=== PATIENT | female | born 1935 | race Caucasian/White ===

== ENCOUNTER → 2017-02-22 | Outpatient (CLI) | payer MEDICARE, MEDICAID ==
--- NOTE | 2017-02-22 15:03 | RADIOLOGY REPORT (SQ) ---
EXAM DESCRIPTION: SACRUM AND COCCYX COMPLETED DATE/TIME: 02/22/2017 2:38 pm REASON FOR STUDY: PELVIC AND PERINEAL PAIN R10.2 PELVIC AND PERINEAL PAIN COMPARISON: None. NUMBER OF VIEWS: Three views. TECHNIQUE: AP, lateral, and tilt views of the sacrum and coccyx. LIMITATIONS: None. FINDINGS: MINERALIZATION: Osteopenia. BONES: No acute fracture or dislocation. No worrisome bone lesions. SOFT TISSUES: No soft tissue swelling. No foreign body. OTHER: No other significant finding. IMPRESSION: Osteopenia with no acute abnormality of the sacrum and coccyx. TECHNICAL DOCUMENTATION: JOB ID: [id number] [employer]- All Rights Reserved
--- NOTE | 2017-02-22 15:05 | RADIOLOGY REPORT (SQ) ---
EXAM DESCRIPTION: LUMBAR SPINE COMPLETE COMPLETED DATE/TIME: 02/22/2017 2:38 pm REASON FOR STUDY: PELVIC AND PERINEAL PAIN R10.2 PELVIC AND PERINEAL PAIN COMPARISON: None. NUMBER OF VIEWS: Five views including obliques. TECHNIQUE: AP, lateral, oblique, and sacral radiographic images acquired of the lumbar spine. LIMITATIONS: None. FINDINGS: MINERALIZATION: Osteopenia. SEGMENTATION: Normal. No transitional anatomy. ALIGNMENT: Normal. VERTEBRAE: Maintained height. No fracture or worrisome bone lesion. DISCS: There is mild disc space narrowing from L3-S1 POSTERIOR ELEMENTS: Pedicles and facets are intact. No pars defect or posterior arch defects. HARDWARE: None in the spine. PARASPINAL SOFT TISSUES: Normal. PELVIS: Intact as visualized. No fractures or worrisome bone lesions. SI joints intact. OTHER: No other significant finding. IMPRESSION: Osteopenia with mild degenerative disc changes TECHNICAL DOCUMENTATION: JOB ID: [id number] [employer]- All Rights Reserved
--- NOTE | 2017-02-22 15:06 | RADIOLOGY REPORT (SQ) ---
EXAM DESCRIPTION: SACROILIAC JOINTS COMPLETED DATE/TIME: 02/22/2017 2:38 pm REASON FOR STUDY: PELVIC AND PERINEAL PAIN R10.2 PELVIC AND PERINEAL PAIN COMPARISON: None. NUMBER OF VIEWS: Three views. TECHNIQUE: AP and oblique views of the sacroiliac joints. LIMITATIONS: None. FINDINGS: MINERALIZATION: Osteopenia. BONES: No acute fracture or dislocation. No worrisome bone lesions. No significant osteophytes. JOINTS: The sacroiliac joints are patent. No unusual widening, sclerosis, or fusion. SOFT TISSUES: No soft tissue swelling. No radio-opaque foreign body. OTHER: No other significant finding. IMPRESSION: Osteopenia. Normal SI joints. TECHNICAL DOCUMENTATION: JOB ID: [id number] [employer]- All Rights Reserved
== END ==
LOC: OD 14:08
PROVIDERS: ATTEND Internal Medicine
DX: R10.2 Pelvic and perineal pain (principal)
CPT/HCPCS: 72110; 72200; 72220

== ENCOUNTER 2017-03-18 21:03 | Emergency (ER) | payer MEDICARE, MEDICAID ==
--- NOTE | 2017-03-18 22:27 | RADIOLOGY REPORT (SQ) ---
EXAM DESCRIPTION: HIP RIGHT AP/LATERAL COMPLETED DATE/TIME: 03/18/2017 9:59 pm REASON FOR STUDY: fall this am , right hip pain COMPARISON: None. NUMBER OF VIEWS: Two views. TECHNIQUE: AP pelvis and additional frog-leg view of the right hip. LIMITATIONS: None. FINDINGS: MINERALIZATION: Normal. RIGHT HIP: No fracture or dislocation. No worrisome bone lesions. LEFT HIP: No fracture or dislocation. No worrisome bone lesions. PUBIS AND ISCHIUM: No fracture. PELVIS: No fracture. SACRUM: No fracture or dislocation. No worrisome bone lesions. LOWER LUMBAR SPINE: No fracture or dislocation. No worrisome bone lesions. No significant disc disea se. SOFT TISSUES: No findings. OTHER: No other significant finding. IMPRESSION: NO RADIOGRAPHIC EVIDENCE OF ACUTE INJURY. TECHNICAL DOCUMENTATION: JOB ID: [id number] [employer]- All Rights Reserved
[2017-03-18] MEDS ORDERED: HYDROCODONE/ACETAMINOPHEN 5-325 MG TABLET PO ONE (23:04)
[2017-03-18] MEDS ORDERED: HYDROCODONE/ACETAMINOPHEN 5-325 MG 6 TAB/DSPK PO PRN (23:05)
--- NOTE | 2017-03-18 23:05 | ER Document Report ---
ED Hip Pain/Injury - General Chief Complaint: Hip Pain Stated Complaint: HIP PAIN Time Seen by Provider: 03/18/17 21:30 Mode of Arrival: Medic Information source: Patient, Relative - daughter Notes: 81 yo female with hx fibromyalgia stumbled and slipped on rug this am in the bathroom and fell injurying her right posterior hip at 0900. Daughter that she lives with gave her Tylenol with codeine#4 4 times today and consistently had pain in the same area. She is basically bedridden (80% day) and uses fentanyl 25 mcg patches prescribed by Dr. Johnson. Does not consistantly use her walker. Pacemaker [place] stent placed 6 [place] ago [place]. TRAVEL OUTSIDE OF THE [place] IN LAST 30 DAYS: No - Related Data Allergies/Adverse Reactions: atenolol Allergy (Verified 06/30/14 11:42) clarithromycin [From Biaxin] Allergy (Verified 06/30/14 11:42) isosorbide mononitrate [From Imdur] Allergy (Verified 06/30/14 11:42) meperidine HCl [From Demerol] Allergy (Verified 06/30/14 11:42) metoprolol Allergy (Verified 06/30/14 11:42) phenytoin sodium [From Dilantin] Allergy (Verified 06/30/14 11:42) prednisone Allergy (Verified 06/30/14 11:42) Past Medical History - General Information source: Patient - Social History Smoking Status: Never Smoker Frequency of alcohol use: None Drug Abuse: None Lives with: Family - daughter Family History: Reviewed & Not Pertinent Patient has suicidal ideation: No Patient has homicidal ideation: No - Past Medical History Cardiac Medical History: Reports: Hx Coronary Artery Disease, Hx Heart Attack - X4, Hx Hypertension Neurological Medical History: Reports: Hx Seizures Endocrine Medical History: Reports: Hx Hypothyroidism Renal/ Medical History: Denies: Hx Peritoneal Dialysis Musculoskeltal Medical History: Reports Hx Fibromyalgia Psychiatric Medical History: Reports: Hx Depression Past Surgical History: Reports: Hx Cardiac Catheterization - stentx1, Hx Hysterectomy - partial - Immunizations Hx Diphtheria, Pertussis, Tetanus Vaccination: Yes Hx Pneumococcal Vaccination: 04/18/14 Review of Systems - Review of Systems Constitutional: No symptoms reported EENT: No symptoms reported Cardiovascular: No symptoms reported Respiratory: No symptoms reported Gastrointestinal: No symptoms reported Genitourinary: No symptoms reported Female Genitourinary: No symptoms reported Musculoskeletal: See HPI Skin: No symptoms reported Hematologic/Lymphatic: No symptoms reported Neurological/Psychological: No symptoms reported Physical Exam - Vital signs Vitals: Temp Pulse Resp BP Pulse Ox 98.6 F 82 18 136/87 H 93 03/18/17 21:19 03/18/17 21:19 03/18/17 21:19 03/18/17 21:19 03/18/17 21:19 Interpretation: Normal - General General appearance: Appears well, Alert - HEENT Head: Normocephalic, Atraumatic Eyes: Normal Pupils: PERRL Mucous membranes: Normal Pharynx: Normal Neck: Supple Notes: alopecia for 5 years - Respiratory Respiratory status: No respiratory distress Chest status: Nontender Breath sounds: Normal Chest palpation: Normal - Cardiovascular Rhythm: Regular Heart sounds: Normal auscultation Murmur: No - Abdominal Inspection: Normal Distension: No distension Bowel sounds: Normal Tenderness: Nontender. No: Tender Organomegaly: No organomegaly - Back Back: Normal, Tender - right posterior pelvis/hip at the posterior superior iliac spine. No: CVA tenderness, Vertebra tenderness - Extremities General upper extremity: Normal inspection, Nontender, Normal color, Normal ROM , Normal temperature General lower extremity: Normal inspection, Nontender, Normal color, Normal ROM , Normal temperature, Normal weight bearing. No: Maynor's sign - Neurological Neuro grossly intact: Yes Cognition: Normal Orientation: AAOx4 [place] Coma Scale Eye Opening: Spontaneous [place] Coma Scale Verbal: Oriented [place] Coma Scale Motor: Obeys Commands Louis Coma Scale Total: 15 Speech: Normal Motor strength normal: LUE, RUE, LLE, RLE Sensory: Normal - Psychological Associated symptoms: Normal affect, Normal mood - Skin Skin Temperature: Warm Skin Moisture: Dry Skin Color: Normal Skin irregularity: negative: Rash Course - Re-evaluation Re-evalutation: 03/18/17 23:04 X-ray is negative and the fentanyl is warranted often she is less mobile complaining of pain in the same area posterior superior iliac spine area and hip. I discussed with her daughter about stronger breakthrough pain medication than Tylenol with codeine No. 4. I am giving her a hydrocodone 5 mg with the dispense #6 and she can see dr elizondo tomorrow for pain management. 03/18/17 23:[address] orta for dispo and tx. 03/19/17 03:07 late entry: after the hydrocodone kicked in, she was able to sit up in bed and walk to the wheelchair for discharge. - Vital Signs Vital signs: Temp Pulse Resp BP Pulse Ox 98.6 F 82 19 138/89 H 95 03/18/17 21:19 03/18/17 21:19 03/18/17 23:00 03/18/17 23:00 03/18/17 23:00 Discharge - Discharge Clinical Impression: fall, Posterior pain of right hip Condition: Good Disposition: HOME, SELF-CARE Instructions: Contusion ([facility]), Muscle Strain ([facility]) Additional Instructions: warm compress may help like a heating pad see dr. johnson tomorrow about pain control the hydrocodone 5mg can be taken every 4-6 hour Referrals: ARCHANA JOHNSON MD [Primary Care Provider] - Follow up tomorrow
[2017-03-19 00:29] VITALS: BP 138/89
== END 2017-03-19 00:29 | disposition home or self-care (01) ==
LOC: ER 21:03
DX: M79.1 Myalgia (principal); M25.551 Pain in right hip; Z79.899 Other long term (current) drug therapy; Z95.0 Presence of cardiac pacemaker; W19.XXXA Unspecified fall, initial encounter
CPT/HCPCS: 99283; 73502; A9270 ×2

== ENCOUNTER → 2017-03-29 | Outpatient (CLI) | payer MEDICARE, MEDICAID ==
--- NOTE | 2017-03-29 15:24 | RADIOLOGY REPORT (SQ) ---
EXAM DESCRIPTION: NM WHOLE BODY BONE SCAN COMPLETED DATE/TIME: 03/29/2017 1:27 pm REASON FOR STUDY: OTHER OSTEOPOROSIS W/CURRENT PATHOLOGICAL FX, VERTEBRA(E) INITIL ENC (M80.8 M80.88 XA OTH OSTEOPOR W CURRENT PATH FRACTURE, VERTEBRA(E), COMPARISON: Sacrum and coccyx, SI joints, lumbar spine plain films 02/22/2017 Whole-body bone scan 12/27/2012 RADIONUCLIDE AND DOSE: 21.7 millicuries Tc99m MDP. The route of agent administration: Intravenous. ADDITIONAL DRUGS AND DOSES: None. TECHNIQUE: Routine delayed images at 3 hours post radionuclide injection acquired of the bony skelet on including anterior and posterior whole-body projections and additional focused images as needed. 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 This could be related to occult frac ture or advanced degenerative changes. Soft tissue uptake in the right infraclavicular region of doubtful clinical significance Bandlike increased uptake at the L1 level is present, worrisome for subacute upper endplate compressi on deformity. H shaped sacral activity worrisome for sacral insufficiency fracture. Increased uptake medial femoral condyle medial tibial plateau left knee from osteoarthritis Increased uptake right midfoot and hindfoot, could either be due to arthritis or trauma/occult fractu res KIDNEYS: Symmetric excretion without obstruction. OTHER: No other significant finding. IMPRESSION: Increased uptake upper endplate of L1 worrisome for subacute upper endplate compression fracture H shaped sacral activity worrisome for sacral insufficiency fractures Increased uptake right hindfoot and midfoot, left knee, right shoulder likely due to arthritis. Plai n film correlation could be useful COMMENT: Quality measure 147: Current bone scan is compared with any available plain radiographs, p rior bone scans, and CT/MRI. TECHNICAL DOCUMENTATION: JOB ID: [id number] [employer]- All Rights Reserved
== END ==
LOC: RAD 10:00
PROVIDERS: ATTEND Orthopaedic Surgery
DX: M80.88XA Other osteoporosis with current pathological fracture, vertebra(e), initial encounter for fracture (principal)
CPT/HCPCS: 78306; A9561; Q9969

== ENCOUNTER → 2017-04-06 | Outpatient (CLI) | payer MEDICARE, MEDICAID ==
--- NOTE | 2017-04-07 08:28 | RADIOLOGY REPORT (SQ) ---
EXAM DESCRIPTION: ANKLE RIGHT AP/LATERAL COMPLETED DATE/TIME: 04/06/2017 4:56 pm REASON FOR STUDY: PAIN IN RIGHT ANKLE AND JOINTS OF RIGHT FOOT M25.571 PAIN IN RIGHT ANKLE AND JOIN TS OF RIGHT FOOT COMPARISON: None. NUMBER OF VIEWS: Three views. TECHNIQUE: AP, lateral, and oblique radiographic images acquired of the right ankle. LIMITATIONS: None. FINDINGS: MINERALIZATION: Osteopenic BONES: Acute avulsion fragment, distal tip medial malleolus nondisplaced. No other fractures are id entified JOINTS: Tibiotalar joint effusion. No disruption of the ankle mortise SOFT TISSUES: Diffuse medial soft tissue swelling. No radiopaque foreign body OTHER: No other significant finding. IMPRESSION: Acute avulsion fragment distal tip medial malleolus, nondisplaced. TECHNICAL DOCUMENTATION: JOB ID: [id number] [employer]- All Rights Reserved
== END ==
LOC: OD 16:35
PROVIDERS: ATTEND Internal Medicine
DX: M25.571 Pain in right ankle and joints of right foot (principal)

== ENCOUNTER → 2017-06-25 | Day surgery (SDC) | payer MEDICARE, MEDICAID ==
[~2017-06-25] MED LIST: LIDOCAINE 1% INJ-PF (10 MG/ML) 30 ML SDV ONE
--- NOTE | 2017-06-25 16:57 | RADIOLOGY REPORT (SQ) ---
EXAM DESCRIPTION: ARTHRO SHOULDER INJECTION COMPLETED DATE/TIME: 06/25/2017 4:43 pm REASON FOR STUDY: COMPLETE ROTATOR CUFF TEAR OR RUPTURE OF LEFT SHOULDER M75.122 COMPLETE ROTATR-CU FF TEAR/RUPTR OF LEFT SHOULDER, NO COMPARISON: None. FLUOROSCOPY TIME: 0.3 minutes 2 images saved to PACS. LIMITATIONS: None. PROCEDURE: Procedure, risks, benefits and alternative explained to patient who then gave written con sent. The left shoulder was marked and a time-out was called for correct marking verification. Post erior entry site marked using fluoroscopic guidance. Shoulder prepped and draped using sterile techn ique. Local anesthesia achieved using 1% lidocaine injection. 22 gauge spinal needle introduced into the joint space under direct fluoroscopic visualization. Non-ionic contrast instilled to confirm in tra-articular position. Additional dilute non-ionic contrast instilled. Needle removed and entry si te covered with sterile bandage. No immediate complications noted. TECHNIQUE: Digital images acquired during fluoroscopy and stored on PACS. Patient immediately take n to the CT suite for additional imaging. INJECTION LOCATION: Posterior CONTRAST TYPE AND AMOUNT: 8 mL Isovue solution IMPRESSION: SUCCESSFUL NEEDLE PLACEMENT AND INJECTION FOR left SHOULDER CT ARTHROGRAM USING POSTERIO R APPROACH. COMMENT: Quality ID 145: Final reports for procedures using fluoroscopy that document radiation exp osure indices, or exposure time and number of fluorographic images (if radiation exposure indices are not available) TECHNICAL DOCUMENTATION: JOB ID: [id number] [employer]- All Rights Reserved
--- NOTE | 2017-06-25 16:57 | RADIOLOGY REPORT (SQ) ---
EXAM DESCRIPTION: FLUORO/NEEDLE PLACEMENT COMPLETE DATE/TIME: 06/25/2017 4:43 pm REASON FOR STUDY: COMPLETE ROTATOR CUFF TEAR OR RUPTURE OF LEFT SHOULDER M75.122 COMPLETE ROTATR-CU FF TEAR/RUPTR OF LEFT SHOULDER, NO FINDINGS: Please see combined report for performance of procedure and radiologic supervision and int erpretation. IMPRESSION: Please see combined report for performance of procedure and radiologic supervision and i nterpretation.
--- NOTE | 2017-06-27 15:59 | RADIOLOGY REPORT (SQ) ---
EXAM DESCRIPTION: CT LT UPPER EXTREMITY WITH COMPLETED DATE/TIME: 06/25/2017 4:40 pm REASON FOR STUDY: COMPLETE ROTATOR CUFF TEAR OR RUPTURE OF LEFT SHOULDER M75.122 COMPLETE ROTATR-CU FF TEAR/RUPTR OF LEFT SHOULDER, NO COMPARISON: None. TECHNIQUE: Axial imaging performed through the leftshoulder with reformatted oblique coronal and obl ique sagittal imaging windowed for bone and soft tissues. All CT scanners at this facility use dose modulation, iterative reconstruction, and/or weight based d osing when appropriate to reduce radiation dose to as low as reasonably achievable (ALARA). [facility]: Dose Right [facility]: CareDose [facility]: Dose Right [facility]: Teradose 4D [facility]: [employer] RADIATION DOSE: CT Rad equipment meets quality standard of care and radiation dose reduction techniq ues were employed. CTDIvol: 11.5 mGy. DLP: 332 mGy-cm. mGy. LIMITATIONS: None. FINDINGS: No fracture identified. GLENOHUMERAL JOINT: Mild arthrosis and superior subluxation of the humeral head relative to the gleno id approximately 10 mm. ACROMION AND AC JOINT: Moderate arthrosis. Contrast is present in the AC joint from the subacromial bursa. ROTATOR CUFF: Complex full-thickness tear of the supraspinatus tendon involving the central 2 cm liliya cent to the myotendinous junction with approximately 10 mm of tendon retraction. There is partial te aring of the deep fibers of the subscapularis with medial subluxation of the biceps tendon in the upp er bicipital groove -intra-articular portion. GLENOID, LABRUM AND BICEPS: Degenerative superior labral tear. OTHER: No other significant finding. IMPRESSION: No fracture.Complex full-thickness tear of the supraspinatus tendon involving the centra l 2 cm adjacent to the myotendinous junction with approximately 10 mm of tendon retraction. There is partial tearing of the deep fibers of the subscapularis with medial subluxation of the biceps tendon in the upper bicipital groove -intra-articular portion. TECHNICAL DOCUMENTATION: JOB ID: [id number] [place]-72 Quality ID # [id number]: Final reports with documentation of one or more dose reduction techniques (e.g., Au tomated exposure control, adjustment of the mA and/or kV according to patient size, use of iterative reconstruction technique) 2010 [employer]- All Rights Reserved
== END ==
LOC: RAD 06-23 13:54
PROVIDERS: ATTEND Orthopaedic Surgery
PROC: BP09ZZZ Plain Radiography of Left Shoulder (ICD-10-PCS; principal; 2017-06-25)
DX: M75.122 Complete rotator cuff tear or rupture of left shoulder, not specified as traumatic (principal)
CPT/HCPCS: 77002; 23350; 73201; J3490

== ENCOUNTER 2018-06-24 13:57 | Emergency (ER) | payer MEDICARE, MEDICAID ==
[2018-06-24] MEDS ORDERED: HYDROMORPHONE HCL INJ/PF 2 MG/ML AMPULE IV ONE ×2 (14:44→16:31)
--- NOTE | 2018-06-24 14:47 | ER Document Report ---
ED Extremity Problem, Upper - General Chief Complaint: Shoulder Pain Stated Complaint: SHOULDER PAIN Time Seen by Provider: 06/24/18 14:35 Mode of Arrival: Stretcher Information source: Patient, Relative TRAVEL OUTSIDE OF THE [place] IN LAST 30 DAYS: No - HPI Patient complains to provider of: Injury, Pain, Left, Elbow, Shoulder Onset: Just prior to arrival Recent injury: Yes Where: Home Quality of pain: Achy, Throbbing Severity of pain: Severe Pain Level: 5 Context: Fall Associated symptoms: None Exacerbated by: Movement Relieved by: Nothing Similar symptoms previously: Yes Recently seen / treated by doctor: No Notes: Patient is an 82-year-old female presenting to the emergency room for complaints of pain and injury to her left shoulder, states she was walking her dog which is a very large overweight boxer, she had the leash wrapped around her left wrist, the dog took off very quickly causing patient to fall to the floor, and then the dog proceeded to run and pull patient by the leash several feet, she reports pain in her left shoulder which radiates down the arm, she denies any numbness or tingling, no head injury or loss of consciousness, denies pain elsewhere, history of rotator cuff injury on the left side but pain today is much worse than before - Related Data Allergies/Adverse Reactions: atenolol Allergy (Verified 06/30/14 11:42) clarithromycin [From Biaxin] Allergy (Verified 06/30/14 11:42) Iodinated Contrast- Oral and IV Dye Allergy (Verified 06/23/17 15:15) isosorbide mononitrate [From Imdur] Allergy (Verified 06/30/14 11:42) meperidine HCl [From Demerol] Allergy (Verified 06/30/14 11:42) metoprolol Allergy (Verified 06/30/14 11:42) phenytoin sodium [From Dilantin] Allergy (Verified 06/30/14 11:42) prednisone Allergy (Verified 06/30/14 11:42) Past Medical History - General Information source: Patient, Relative - Social History Smoking Status: Never Smoker Chew tobacco use (# tins/day): No Frequency of alcohol use: None Drug Abuse: None Family History: Reviewed & Not Pertinent Patient has suicidal ideation: No Patient has homicidal ideation: No - Past Medical History Cardiac Medical History: Reports: Hx Coronary Artery Disease, Hx Heart Attack - X4, Hx Hypertension Neurological Medical History: Reports: Hx Seizures Endocrine Medical History: Reports: Hx Hypothyroidism Renal/ Medical History: Denies: Hx Peritoneal Dialysis Musculoskeletal Medical History: Reports Hx Fibromyalgia Psychiatric Medical History: Reports: Hx Depression Past Surgical History: Reports: Hx Cardiac Catheterization - stentx1, Hx Hysterectomy - Immunizations Hx Diphtheria, Pertussis, Tetanus Vaccination: Yes Hx Pneumococcal Vaccination: 04/18/14 Review of Systems - Review of Systems Constitutional: No symptoms reported EENT: No symptoms reported Cardiovascular: No symptoms reported Respiratory: No symptoms reported Gastrointestinal: No symptoms reported Genitourinary: No symptoms reported Female Genitourinary: No symptoms reported Musculoskeletal: See HPI Skin: No symptoms reported Hematologic/Lymphatic: No symptoms reported Neurological/Psychological: No symptoms reported -: Yes All other systems reviewed and negative Physical Exam - Vital signs Vitals: Temp Pulse Resp BP Pulse Ox 98.2 F 81 20 148/69 H 93 06/24/18 14:05 06/24/18 14:05 06/24/18 14:05 06/24/18 14:05 06/24/18 14:05 Interpretation: Normal - General General appearance: Appears well, Alert - HEENT Head: Normocephalic, Atraumatic Eyes: Normal Pupils: PERRL - Respiratory Respiratory status: No respiratory distress Chest status: Nontender Breath sounds: Normal Chest palpation: Normal - Cardiovascular Rhythm: Regular Heart sounds: Normal auscultation Murmur: No - Abdominal Inspection: Normal Distension: No distension Bowel sounds: Normal Tenderness: Nontender Organomegaly: No organomegaly - Back Back: Normal, Nontender - Extremities General upper extremity: Normal color, Normal temperature General lower extremity: Normal inspection, Nontender, Normal color, Normal ROM , Normal temperature, Normal weight bearing. No: Maynor's sign Shoulder: Tender - Tender to palpate in the left shoulder/proximal humerus, pain with range of motion testing, tenderness down through to the elbow, 2+ radial pulses, distal sensation and motor is intact - Neurological Neuro grossly intact: Yes Cognition: Normal Orientation: AAOx4 Louis Coma Scale Eye Opening: Spontaneous [place] Coma Scale Verbal: Oriented [place] Coma Scale Motor: Obeys Commands [place] Coma Scale Total: 15 Speech: Normal Motor strength normal: LUE, RUE, LLE, RLE Sensory: Normal - Psychological Associated symptoms: Normal affect, Normal mood - Skin Skin Temperature: Warm Skin Moisture: Dry Skin Color: Normal Course - Re-evaluation Re-evalutation: 06/24/18 14:54 Imaging findings discussed with Dr. Keller, orthopedics, who recommends immobilization, pain control and outpatient follow-up 06/24/18 17:45 Imaging findings discussed with patient at bedside which are consistent with proximal humerus fracture, or so recommends pain management, immobilization and output, patient given instructions for follow-up as well as prescription for pain medication, advised to return if symptoms worsen, patient and family at bedside acknowledge understanding and agreement with this plan - Vital Signs Vital signs: Temp Pulse Resp BP Pulse Ox 98.2 F 81 19 129/81 H 98 06/24/18 14:05 06/24/18 14:05 06/24/18 16:40 06/24/18 16:40 06/24/18 16:40 - Diagnostic Test Radiology reviewed: Image reviewed, Reports reviewed Procedures - Immobilization Left Shoulder Time completed: 14:56 Pre-Proc Neuro Vasc Exam: Normal Immobilizer type: Sling Performed by: PCT Post-Proc Neuro Vasc Exam: Normal Alignment checked and good: Yes Discharge - Discharge Clinical Impression: Proximal humerus fracture Qualifiers: Encounter type: initial encounter Fracture type: closed Fracture morphology: unspecified fracture morphology Laterality: left Qualified Code(s): S42.202A - Unspecified fracture of upper end of left humerus, initial encounter for closed fracture Condition: Stable Disposition: HOME, SELF-CARE Instructions: Fracture Proximal Humerus Additional Instructions: Follow up with your primary care provider and an orthopedic surgeon in one to 2 days. Return to the emergency room immediately if symptoms worsen or any additional concerns. Ice and elevate the affected extremity. Prescriptions: Oxycodone HCl/Acetaminophen [Percocet 10-325 Mg Tablet] 1 each PO Q6 #14 tablet Referrals: ARCHANA JOHNSON MD [Primary Care Provider] - Follow up as needed GAY FORTUNE MD [ACTIVE STAFF] - Follow up as needed WILL KELLER DO [ACTIVE STAFF] - Follow up as needed
--- NOTE | 2018-06-24 14:50 | RADIOLOGY REPORT (SQ) ---
EXAM DESCRIPTION: SHOULDER LEFT 2 OR MORE VIEWS COMPLETED DATE/TIME: 06/24/2018 2:37 pm REASON FOR STUDY: pain COMPARISON: None. NUMBER OF VIEWS: Two views. TECHNIQUE: Internal rotation and Y view images acquired of the left shoulder. LIMITATIONS: None. FINDINGS: MINERALIZATION: Normal. BONES: There is a comminuted fracture of the humeral head/ neck. No dislocation. JOINTS: No dislocation. VISUALIZED LUNGS AND RIBS: No pneumothorax. No rib fracture. SOFT TISSUES: No radiopaque foreign body. OTHER: No other significant finding. IMPRESSION: Fracture of the humeral head/ neck. TECHNICAL DOCUMENTATION: JOB ID: [id number] [employer]- All Rights Reserved Reading location - IP/workstation name: [email or web address]
--- NOTE | 2018-06-24 16:25 | RADIOLOGY REPORT (SQ) ---
EXAM DESCRIPTION: ELBOW LEFT OVER 2 VIEWS COMPLETED DATE/TIME: 06/24/2018 4:16 pm REASON FOR STUDY: fall COMPARISON: None. NUMBER OF VIEWS: Three views. TECHNIQUE: AP lateral oblique radiographic images acquired of the left elbow. LIMITATIONS: None. FINDINGS: MINERALIZATION: Normal. BONES: No acute fracture or dislocation. No worrisome bone lesions. JOINT: No effusion. SOFT TISSUES: No soft tissue swelling. No foreign body. OTHER: No other significant finding. IMPRESSION: NEGATIVE STUDY OF THE LEFT ELBOW. NO RADIOGRAPHIC EVIDENCE OF ACUTE INJURY. TECHNICAL DOCUMENTATION: JOB ID: [id number] [employer]- All Rights Reserved Reading location - IP/workstation name: [email or web address]
--- NOTE | 2018-06-24 16:31 | RADIOLOGY REPORT (SQ) ---
EXAM DESCRIPTION: WRIST LEFT 3 VIEWS COMPLETED DATE/TIME: 06/24/2018 4:16 pm REASON FOR STUDY: fall COMPARISON: None. NUMBER OF VIEWS: Three views. TECHNIQUE: AP, lateral, and oblique radiographic images acquired of the left wrist. LIMITATIONS: None. FINDINGS: MINERALIZATION: Osteopenia. BONES: No acute fracture or dislocation. If there is any concern for navicular fracture, it may be a good idea to obtain some additional views. SOFT TISSUES: No soft tissue swelling. No foreign body. OTHER: Marked degenerative joint changes in the 1st carpometacarpal joint and in the articulations of the navicular distally. IMPRESSION: Degenerative joint disease. No acute fracture. Consider additional navicular views. TECHNICAL DOCUMENTATION: JOB ID: [id number] [employer]- All Rights Reserved Reading location - IP/workstation name: [email or web address]
[2018-06-24 16:58] VITALS: BP 129/81
== END 2018-06-24 17:16 | disposition home or self-care (01) ==
LOC: ER 13:57
DX: S42.202A Unspecified fracture of upper end of left humerus, initial encounter for closed fracture (principal); M25.522 Pain in left elbow; M25.512 Pain in left shoulder; M79.602 Pain in left arm; X58.XXXA Exposure to other specified factors, initial encounter; I25.10 Atherosclerotic heart disease of native coronary artery without angina pectoris; I10 Essential (primary) hypertension
CPT/HCPCS: 96376; 99284; 96374; 73080; 73030; 73110; J1170

== ENCOUNTER → 2019-04-27 | Outpatient (CLI) | payer MEDICARE, MEDICAID ==
--- NOTE | 2019-04-27 11:57 | RADIOLOGY REPORT (SQ) ---
EXAM DESCRIPTION: CHEST PA/LATERAL COMPLETED DATE/TIME: 04/27/2019 9:46 am REASON FOR STUDY: COUGH COMPARISON: AP chest 12/04/2012 EXAM PARAMETERS: NUMBER OF VIEWS: two views TECHNIQUE: Digital Frontal and Lateral radiographic views of the chest acquired. RADIATION DOSE: NA LIMITATIONS: none FINDINGS: LUNGS AND PLEURA: No opacities, masses or pneumothorax. No pleural effusion. Benign calci fied granulomas right mid lung MEDIASTINUM AND HILAR STRUCTURES: No masses or contour abnormalities. HEART AND VASCULAR STRUCTURES: Mild cardiomegaly BONES: Old left proximal humeral neck fracture HARDWARE: Left-sided dual lead pacemaker OTHER: No other significant finding. IMPRESSION: No acute findings. TECHNICAL DOCUMENTATION: JOB ID: [id number] [employer]- All Rights Reserved Reading location - IP/workstation name: [email or web address]
--- NOTE | 2019-04-27 12:16 | RADIOLOGY REPORT (SQ) ---
EXAM DESCRIPTION: PARANASAL SINUSES COMPLETED DATE/TIME: 04/27/2019 9:46 am REASON FOR STUDY: COUGH R05 COUGH COMPARISON: None. NUMBER OF VIEWS: Four views TECHNIQUE: Images of the paranasal sinuses acquired. LIMITATIONS: None. FINDINGS: ORBITS: No fracture. No foreign body. SINUSES: No mucosal thickening. No air fluid levels. FACIAL BONES: No fracture. OTHER: No other significant finding. IMPRESSION: NO FOREIGN BODY OR FRACTURE. NO PLAIN RADIOGRAPHIC EVIDENCE FOR SINUS DISEASE. TECHNICAL DOCUMENTATION: JOB ID: [id number] [employer]- All Rights Reserved Reading location - IP/workstation name: [email or web address]
== END ==
LOC: OD 09:30
PROVIDERS: ATTEND Internal Medicine
DX: R05 Cough (principal)
CPT/HCPCS: 70220; 71046

== ENCOUNTER → 2019-08-07 | Outpatient (CLI) | payer MEDICARE, MEDICAID ==
--- NOTE | 2019-08-07 10:44 | RADIOLOGY REPORT (SQ) ---
EXAM DESCRIPTION: FEMUR RIGHT COMPLETED DATE/TIME: 08/07/2019 9:52 am REASON FOR STUDY: PAIN IN RT LOWER LEG M79.661 PAIN IN RIGHT LOWER LEG COMPARISON: None. NUMBER OF VIEWS: Two views. TECHNIQUE: Two radiographic images acquired of the right femur to include hip and knee in at least o ne projection. LIMITATIONS: None. FINDINGS: MINERALIZATION: Osteopenia. BONES: No acute fracture, osseous lesion or periosteal bone formation. SOFT TISSUES: No soft tissue swelling or radiopaque foreign body. OTHER: No other finding. IMPRESSION: No acute osseous abnormality of the right femur. TECHNICAL DOCUMENTATION: JOB ID: [id number] [employer]- All Rights Reserved Reading location - IP/workstation name: [email or web address]
--- NOTE | 2019-08-07 14:21 | RADIOLOGY REPORT (SQ) ---
EXAM DESCRIPTION: HIP RIGHT AP/LATERAL COMPLETED DATE/TIME: 08/07/2019 9:52 am REASON FOR STUDY: PAIN IN RT LOWER LEG M79.661 PAIN IN RIGHT LOWER LEG COMPARISON: 03/18/2017 NUMBER OF VIEWS: Two views. TECHNIQUE: AP pelvis and additional frog-leg view of the right hip. LIMITATIONS: None. FINDINGS: MINERALIZATION: Normal. RIGHT HIP: No fracture or dislocation. No worrisome bone lesions. LEFT HIP: Prior nailing of the left hip. PUBIS AND ISCHIUM: No fracture. PELVIS: No fracture. SACRUM: No fracture or dislocation. No worrisome bone lesions. LOWER LUMBAR SPINE: No fracture or dislocation. No worrisome bone lesions. No significant disc disea se. SOFT TISSUES: No findings. OTHER: No other significant finding. IMPRESSION: NEGATIVE STUDY OF THE RIGHT HIP. NO RADIOGRAPHIC EVIDENCE OF ACUTE INJURY. TECHNICAL DOCUMENTATION: JOB ID: [id number] [employer]- All Rights Reserved Reading location - IP/workstation name: [email or web address]
== END ==
LOC: OD 09:26
PROVIDERS: ATTEND Internal Medicine
DX: M79.661 Pain in right lower leg (principal); M85.88 Other specified disorders of bone density and structure, other site

== ENCOUNTER → 2019-08-25 | Outpatient (CLI) | payer MEDICARE, MEDICAID ==
--- NOTE | 2019-08-26 04:12 | RADIOLOGY REPORT (SQ) ---
EXAM DESCRIPTION: Bilateral lower extremity venous duplex CLINICAL HISTORY: 84 years, Female, BLE EDEMA COMPARISON: None TECHNIQUE: Utilizing a linear array transducer, real-time ultrasound evaluation of the bilateral lower extremity was performed. Color Doppler imaging was used to assess vascular flow. FINDINGS: The right common femoral and proximal/mid/distal superficial femoral veins are normal in caliber and compressibility. There is normal directional flow. The right popliteal vein is normal in appearance. There is normal directional flow and normal compressibility. The left common femoral and proximal/mid/distal superficial femoral veins are normal in caliber and compressibility. There is normal directional flow. The left popliteal vein is normal in appearance. There is normal directional flow and normal compressibility. No abnormal soft tissue masses or significant edema is identified. IMPRESSION: No evidence of bilateral lower extremity deep venous thrombosis.]
== END ==
LOC: SP 16:07
PROVIDERS: ATTEND Internal Medicine
DX: R22.43 Localized swelling, mass and lump, lower limb, bilateral (principal)
CPT/HCPCS: 93970

== ENCOUNTER 2019-12-24 10:00 | Inpatient (IN) | payer MEDICARE, MEDICAID ==
[2019-12-24 10:45] LABS: ABSOLUTE LYMPHOCYTES (AUTO) 0.6 10^3/uL (0.5-4.7); ABSOLUTE MONOCYTES (AUTO) 0.4 10^3/uL (0.1-1.4); ABSOLUTE NEUT (AUTO) 7.2 10^3/uL (1.7-8.2); BASOPHILS % (AUTO) 0.1 % (0-2); HEMATOCRIT 44.4 % (36.0-47.0); HEMOGLOBIN 14.9 g/dL (12.0-15.5); LYMPHOCYTES % (AUTO) 7.5 % (13-45); MEAN CORPUSCULAR HEMOGLOBIN 32.1 pg (27.0-33.4); MEAN CORPUSCULAR HGB CONC 33.5 g/dL (32.0-36.0); MEAN CORPUSCULAR VOLUME 96 fl (80-97); MONOCYTES % (AUTO) 5.3 % (3-13); PLATELET COUNT 266 10^3/uL (150-450); RED BLOOD COUNT 4.63 10^6/uL (3.72-5.28); RED CELL DISTRIBUTION WIDTH 13.6 % (11.5-14.0); SEGMENTED NEUTROPHILS % (AUTO) 87.1 % (42-78); TOTAL CELLS COUNTED % (AUTO) 100 %; WHITE BLOOD COUNT 8.3 10^3/uL (4.0-10.5)
[2019-12-24 10:56] LABS: APPEARANCE,URINE SLIGHTLY-CLOUDY; BILIRUBIN,URINE NEGATIVE (NEGATIVE); COLOR,URINE YELLOW; GLUCOSE, URINE NEGATIVE (NEGATIVE); KETONES,URINE NEGATIVE (NEGATIVE); LEUKOCYTE ESTERASE,URINE NEGATIVE (NEGATIVE); NITRITE,URINE NEGATIVE (NEGATIVE); PROTEIN,URINE NEGATIVE (NEGATIVE); URINE SPECIFIC GRAVITY 1.017; UROBILINOGEN,URINE NEGATIVE mg/dL (<2.0)
[2019-12-24 11:13] LABS: URINE AMPHETAMINES SCREEN NEGATIVE; URINE BENZODIAZEPINES SCREEN NEGATIVE; URINE COCAINE SCREEN NEGATIVE; URINE MARIJUANA (THC) SCREEN NEGATIVE; URINE METHADONE SCREEN NEGATIVE; URINE PHENCYCLIDINE SCREEN NEGATIVE
[2019-12-24 11:16] LABS: URINE BARBITURATES SCREEN UNCONFIRMED POSITIVE
--- NOTE | 2019-12-24 11:17 | EKG REPORT ---
SEVERITY:- BORDERLINE ECG - SINUS RHYTHM BORDERLINE INFERIOR Q WAVES BORDERLINE T ABNORMALITIES, ANTERIOR LEADS : Confirmed by: Yobany Milligan 24-Dec-2019 11:16:57
[2019-12-24] MEDS ORDERED: NORMAL SALINE 500 ML IV ONE (11:21)
--- NOTE | 2019-12-24 11:43 | RADIOLOGY REPORT (SQ) ---
EXAM DESCRIPTION: CHEST SINGLE VIEW IMAGES COMPLETED DATE/TIME: 12/24/2019 11:31 am REASON FOR STUDY: ams COMPARISON: 04/27/2019. FINDINGS: One-view chest AP portable upright. Low lung volumes. Minimal central vascular congestion and cardiomegaly. No pneumothorax. Pacer in place as before. TECHNICAL DOCUMENTATION: JOB ID: [id number] Reading location - IP/workstation name: [email or web address]
[2019-12-24 11:50] LABS: ALBUMIN 4.5 g/dL (3.5-5.0); ALKALINE PHOSPHATASE 125 U/L (38-126); ANION GAP 10 (5-19); ASPARTATE AMINO TRANSFERASE 51 U/L (14-36); BILIRUBIN,TOTAL 0.3 mg/dL (0.2-1.3); BLOOD UREA NITROGEN 33 mg/dL (7-20); CALCIUM 9.3 mg/dL (8.4-10.2); CARBON DIOXIDE 28 mmol/L (22-30); CHLORIDE 99 mmol/L (98-107); GLUCOSE 144 mg/dL (75-110); POTASSIUM 5.1 mmol/L (3.6-5.0); TOTAL PROTEIN 7.4 g/dL (6.3-8.2)
[2019-12-24 11:54] LABS: ACETAMINOPHEN < 10 ug/mL (10-30); ALCOHOL < 10 mg/dL (NONE DETECTED); SALICYLATE < 1.0 mg/dL (2.0-20.0)
--- NOTE | 2019-12-24 12:31 | RADIOLOGY REPORT (SQ) ---
EXAM DESCRIPTION: CT HEAD WITHOUT IMAGES COMPLETED DATE/TIME: 12/24/2019 12:23 pm REASON FOR STUDY: ams/unresponsive COMPARISON: 2015 TECHNIQUE: Axial images acquired through the brain without intravenous contrast. Images reviewed wi th bone, brain and subdural windows. Additional sagittal and coronal reconstructions were generated. Images stored on PACS. All CT scanners at this facility use dose modulation, iterative reconstruction, and/or weight based d osing when appropriate to reduce radiation dose to as low as reasonably achievable (ALARA). [facility]: Dose Right [facility]: CareDose [facility]: Dose Right [facility]: Teradose 4D [facility]: Smart [employer] RADIATION DOSE: CT Rad equipment meets quality standard of care and radiation dose reduction techniq ues were employed. CTDIvol: 53.2 mGy. DLP: 911 mGy-cm. mGy. LIMITATIONS: None. FINDINGS: VENTRICLES: Normal size and contour. CEREBRUM: No masses. No hemorrhage. No midline shift. No evidence for acute infarction. Normal gra y/white matter differentiation. No areas of low density in the white matter. CEREBELLUM: No masses. No hemorrhage. No alteration of density. No evidence for acute infarction. EXTRAAXIAL SPACES: No fluid collections. No masses. ORBITS AND GLOBE: No intra- or extraconal masses. Normal contour of globe without masses. CALVARIUM: No fracture. PARANASAL SINUSES: No fluid or mucosal thickening. SOFT TISSUES: No mass or hematoma. OTHER: No other significant finding. IMPRESSION: NORMAL BRAIN CT WITHOUT CONTRAST. EVIDENCE OF ACUTE STROKE: NO. COMMENT: Quality ID # [id number]: Final reports with documentation of one or more dose reduction techniques (e.g., Automated exposure control, adjustment of the mA and/or kV according to patient size, use of iterative reconstruction technique) TECHNICAL DOCUMENTATION: JOB ID: [id number] [employer]- All Rights Reserved Reading location - IP/workstation name: [email or web address]
--- NOTE | 2019-12-24 12:33 | RADIOLOGY REPORT (SQ) ---
EXAM DESCRIPTION: CT CERVICAL SPINE WITHOUT IMAGES COMPLETED DATE/TIME: 12/24/2019 12:23 pm REASON FOR STUDY: unresponsive COMPARISON: None. TECHNIQUE: Axial images acquired through the cervical spine without intravenous contrast. Images re viewed with lung, soft tissue and bone windows. Reconstructed coronal and sagittal MPR images review ed. Images stored on PACS. All CT scanners at this facility use dose modulation, iterative reconstruction, and/or weight based d osing when appropriate to reduce radiation dose to as low as reasonably achievable (ALARA). [facility]: Dose Right [facility]: CareDose [facility]: Dose Right [facility]: Teradose 4D [facility]: [employer] RADIATION DOSE: CT Rad equipment meets quality standard of care and radiation dose reduction techniq ues were employed. CTDIvol: 20.1 mGy. DLP: 444 mGy-cm. mGy. LIMITATIONS: Motion. FINDINGS: ALIGNMENT: Anatomic. MINERALIZATION: Normal. VERTEBRAL BODIES: No fractures or dislocation. DISCS: Multilevel disc space narrowing with osteophytes. FACETS, LATERAL MASSES, POSTERIOR ELEMENTS: Facet arthropathy. No fractures. No dislocation. No ac kenrick findings. HARDWARE: None in the spine. VISUALIZED RIBS: No fractures. LUNG APICES AND SOFT TISSUES: No significant or acute findings. OTHER: No other significant finding. IMPRESSION: CHRONIC DEGENERATIVE CHANGES. NO ACUTE FINDINGS. TECHNICAL DOCUMENTATION: JOB ID: [id number] Quality ID # [id number]: Final reports with documentation of one or more dose reduction techniques (e.g., Au tomated exposure control, adjustment of the mA and/or kV according to patient size, use of iterative reconstruction technique) 2010 [employer]- All Rights Reserved Reading location - IP/workstation name: [email or web address]
[2019-12-24 15:14] LABS: TROPONIN I 0.886 ng/mL
[2019-12-24 15:16] LABS: VENOUS BLOOD BASE EXCESS -2.1 mmol/L
[2019-12-24 15:18] LABS: VENOUS BLOOD PCO2 82.6 mmHg (35-63); VENOUS BLOOD PH 7.16 (7.30-7.42)
[2019-12-24] MEDS ORDERED: NITROGLYCERIN 2% OINTMENT 1 GM PACKET TP ONE (16:08)
[2019-12-24] MEDS ORDERED: FUROSEMIDE INJ/PF 40 MG/4 ML SDV IV ONE (16:08)
[2019-12-24] MEDS ORDERED: ASPIRIN 81 MG TABLET, CHEWABLE PO ONE (16:09)
[2019-12-24] MEDS ORDERED: LORAZEPAM INJ 2 MG/1 ML VIAL IV ONE (16:57)
[2019-12-24] MEDS ORDERED: PHENOBARBITAL INJ 65 MG/ML VIAL IV ONE (16:58)
--- NOTE | 2019-12-24 17:09 | ER Document Report ---
Entered by KRISTEN LEMOS SCRIBE 12/24/19 1125 Acting as scribe for:CHAU CRUZ MD ED General - General Chief Complaint: Overdose Stated Complaint: POSSIBLE OVERDOSE Primary Care Provider: ARCHANA JOHNSON MD [Primary Care Provider] - Follow up as needed Information source: Patient Notes: This 84-year-old female presents to the emergency department via EMS with a possible overdose on her medications. Patient is a poor historian in her current condition at this time. Patient's family last saw patient well yesterday at 5pm. Family found patient this morning unresponsive. EMS was called and EMS reports that patient was unresponsive to sternal rub. Patient was given a dose of Narcan and was alert. Patient reported to her nurses that she has been taking her medications as prescribed. Patient was brought to the emergency department with her medication pack that was given to her on December 18 (5 days ago), which shows that patient has been not been taking the appropriate doses at the right times of the day (only evening pills are used and some doses on the bottom half of the packet). Patient denies headache and chest pain. Patient states that she falls "a lot". TRAVEL OUTSIDE OF THE [place] IN LAST 30 DAYS: No - Related Data Allergies/Adverse Reactions: aripiprazole [From Abilify] Allergy (Verified 12/24/19 10:36) atenolol Allergy (Verified 12/24/19 10:36) clarithromycin [From Biaxin] Allergy (Verified 12/24/19 10:36) doxepin Allergy (Verified 12/24/19 10:36) Iodinated Contrast Media [Iodinated Contrast- Oral and IV Dye] Allergy (Verified 12/24/19 10:36) isosorbide mononitrate [From Imdur] Allergy (Verified 12/24/19 10:36) lisinopril Allergy (Verified 12/24/19 10:36) meperidine HCl [From Demerol] Allergy (Verified 12/24/19 10:36) metoprolol Allergy (Verified 12/24/19 10:36) phenytoin sodium [From Dilantin] Allergy (Verified 12/24/19 10:36) prednisone Allergy (Verified 12/24/19 10:36) pregabalin [From Lyrica] Allergy (Verified 12/24/19 10:36) Past Medical History - General Information source: Patient, Relative, Emergency Med Personnel - Social History Smoking Status: Never Smoker Cigarette use (# per day): No Chew tobacco use (# tins/day): No Family History: Reviewed & Not Pertinent Patient has homicidal ideation: No - Past Medical History Cardiac Medical History: Reports: Hx Coronary Artery Disease, Hx Heart Attack - X4, Hx Hypertension Neurological Medical History: Reports: Hx Seizures Endocrine Medical History: Reports: Hx Hypothyroidism Musculoskeletal Medical History: Reports Hx Fibromyalgia Psychiatric Medical History: Reports: Hx Depression Past Surgical History: Reports: Hx Coronary Stent - X1, Hx Hysterectomy - Immunizations Hx Diphtheria, Pertussis, Tetanus Vaccination: Yes Hx Pneumococcal Vaccination: 04/18/14 Review of Systems - Review of Systems -: Yes ROS unobtainable due to patient's medical condition Cardiovascular: See HPI. denies: Chest pain Neurological/Psychological: See HPI. denies: Headaches Physical Exam - Vital signs Vitals: Pulse Ox 97 12/24/19 10:04 - Notes Notes: Physical Exam: General: Somulent but arousable. Patient moans when asked a question. HEENT: Normocephalic. Atraumatic. PERRL. Extraocular movements intact. Oropharynx clear. Neck: Supple. Non-tender. Respiratory: No respiratory distress. Clear and equal breath sounds bilaterally. Cardiovascular: Regular rate and rhythm. Abdominal: Normal Inspection. Non-tender. No distension. Normal Bowel Sounds. Back: No gross abnormalities. Extremities: Moves all four extremities. Upper extremities: Normal inspection. Normal ROM. Lower extremities: Normal inspection. No edema. Normal ROM. Neurological: Minimal coherent words spoken during exam. Skin: Warm. Dry. Pale. Course - Re-evaluation Re-evalutation: 12/24/19 16:46 Additional history that was obtained from speaking to LELIA ,her daughter, at telephone #[phone] and her daughter Lelia found her mother in bed today unresponsive and she was unable to arouse her mother therefore she called EMS and EMS arrived and provided patient with Narcan which arouse patient and patient was able to awaken patient was brought into the emergency department awake at that time. Patient still has not returned to her complete baseline as according to her daughter she talks very fluently and and converses well but at this point time she is somewhat still sleepy easily aroused and says very minimal words at this time. 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 She has a history of hypothyroidism and CHF. Patient is also on chronic pain medications of which she had run out of her pain medication for a period of time and knows but medications were only obtained again on . Apparently patient overdosed accidentally on her pain medications inasmuch as Narcan awaken her patient also has a seizure disorder and takes phenobarbital patient is also on Plavix Crestor Lasix levothyroxine bisoprolol bisoprolol and also she is on Nitro-Bid ointment as as needed Nitrostat as needed. Discussed with her daughter that she has suffered a small leak of troponin non-STEMI with a troponin level at this time of 0.88 Discussed admission to the hospital with her daughter Lelia who agreed that admitting to [facility] under Dr. Johnson was approved by her. P Ms. Rowell also recommended that we know that she has a time checker named Dr. Guillory who is in [place]. Mostly her admissions have been in [place] in the past. 12/24/19 17:05 Patient has received 4 baby aspirin which she swallowed without any difficulty. Patient lying in bed at this time just gave her IV lorazepam for just agitation that she was going through. Not sure if she is having withdrawal from pain medications versus some atypical focal seizure-like activity as she moves her head back and forth. Certainly there is no myoclonic rhythmic jerking no tongue biting no incontinence and patient is arousable during these episodes. I have ordered IV phenobarbital which patient takes every 8 hours for her seizure management control. - Vital Signs Vital signs: Temp Pulse Resp BP Pulse Ox 99.1 F 15 136/52 H 96 12/24/19 16:33 12/24/19 13:01 12/24/19 13:01 12/24/19 13:01 - Laboratory Result Diagrams: 12/24/19 10:18 12/24/19 11:18 Laboratory results interpreted by me: 12/24/19 12/24/19 12/24/19 10:18 10:18 11:18 Lymph % (Auto) 7.5 L Seg Neutrophils % 87.1 H VBG pH VBG pCO2 Sodium 136.7 L Potassium 5.1 H BUN 33 H Glucose 144 H AST 51 H ALT 62 H NT-Pro-B Natriuret Pep Urine Ascorbic Acid 40 H Salicylates < 1.0 L Acetaminophen < 10 L 12/24/19 12/24/19 11:18 15:01 Lymph % (Auto) Seg Neutrophils % VBG pH 7.16 L* VBG pCO2 82.6 H* Sodium Potassium BUN Glucose AST ALT NT-Pro-B Natriuret Pep 2060 H Urine Ascorbic Acid Salicylates Acetaminophen 12/24/19 16:51 Laboratory value shows an elevated BNP of 2059 consistent with CHF. Last com parison of BNP goes back to 2017 with a BNP less than 1000. Patient also has a troponin leak of 0.88 at this time. - Diagnostic Test Radiology reviewed: Image reviewed, Reports reviewed Radiology results interpreted by me: 12/24/19 16:52 CT scan of head without contrast does not show any acute stroke or trauma. CT of C-spine shows multilevel degenerative disease otherwise no acute process Chest x-ray shows cardiomegaly and interstitial markings. Pacemaker in place 12/24/19 16:55 - EKG Interpretation by Me Additional EKG results interpreted by me: 12/24/19 16:53 Twelve-lead EKG shows normal sinus rhythm rate of 94 borderline inferior Q waves borderline T abnormalities in anterior leads Complex possibly supraventricular. No evidence for an acute STEMI. Discharge - Discharge Clinical Impression: Accidental overdose by codeine, Chronic CHF (congestive heart failure), Elevated troponin Condition: Fair Disposition: ADMITTED OBSERVATION Admitting Provider: Melisa Unit Admitted: Telemetry Referrals: ARCHANA JOHNSON MD [Primary Care Provider] - Follow up as needed I personally performed the services described in the documentation, reviewed and edited the documentation which was dictated to the scribe in my presence, and it accurately records my words and actions.
[2019-12-24 17:49] LABS: INTERNATIONAL RATION (INR) 1.12; PROTHROMBIN TIME 14.5 SEC (11.4-15.4)
[2019-12-24 17:50] LABS: PARTIAL THROMBOPLASTIN TIME 28.5 SEC (23.5-35.8)
--- NOTE | 2019-12-24 19:03 | EKG REPORT ---
SEVERITY:- ABNORMAL ECG - ATRIAL-PACED COMPLEXES VS SINUS RHYTHM : Confirmed by: Yobany Milligan 24-Dec-2019 19:02:50
[2019-12-24] MEDS ORDERED: NALOXONE HCL INJ/PF 0.4 MG/1 ML SDV ONE (19:06)
[2019-12-24] MEDS ORDERED: NALOXONE HCL INJ/PF 0.4 MG/1 ML SDV IV ONE ×2 (19:30→21:00)
[2019-12-24] MEDS: FAMOTIDINE INJ/PF 20 MG/2 ML SDV IV SCH (21:11)
[2019-12-25 07:13] LABS: ABSOLUTE LYMPHOCYTES (AUTO) 1.9 10^3/uL (0.5-4.7); ABSOLUTE MONOCYTES (AUTO) 0.8 10^3/uL (0.1-1.4); ABSOLUTE NEUT (AUTO) 3.2 10^3/uL (1.7-8.2); BASOPHILS % (AUTO) 0.4 % (0-2); EOSINOPHILS % (AUTO) 0.1 % (0-6); HEMATOCRIT 37.9 % (36.0-47.0); HEMOGLOBIN 13.1 g/dL (12.0-15.5); LYMPHOCYTES % (AUTO) 31.8 % (13-45); MEAN CORPUSCULAR HEMOGLOBIN 32.3 pg (27.0-33.4); MEAN CORPUSCULAR HGB CONC 34.6 g/dL (32.0-36.0); MEAN CORPUSCULAR VOLUME 94 fl (80-97); MONOCYTES % (AUTO) 13.5 % (3-13); PLATELET COUNT 177 10^3/uL (150-450); RED BLOOD COUNT 4.06 10^6/uL (3.72-5.28); RED CELL DISTRIBUTION WIDTH 13.3 % (11.5-14.0); SEGMENTED NEUTROPHILS % (AUTO) 54.2 % (42-78); TOTAL CELLS COUNTED % (AUTO) 100 %; WHITE BLOOD COUNT 5.9 10^3/uL (4.0-10.5)
[2019-12-25 07:29] LABS: ALBUMIN 3.6 g/dL (3.5-5.0); ALKALINE PHOSPHATASE 102 U/L (38-126); ASPARTATE AMINO TRANSFERASE 60 U/L (14-36); BILIRUBIN,TOTAL 0.3 mg/dL (0.2-1.3); BLOOD UREA NITROGEN 34 mg/dL (7-20); CALCIUM 8.7 mg/dL (8.4-10.2); GLUCOSE 102 mg/dL (75-110); TOTAL PROTEIN 6.1 g/dL (6.3-8.2)
[2019-12-25 07:35] LABS: CARBON DIOXIDE 30 mmol/L (22-30); CHLORIDE 102 mmol/L (98-107)
[2019-12-25 07:44] LABS: ANION GAP 5 (5-19)
[2019-12-25 07:53] LABS: POTASSIUM 4.1 mmol/L (3.6-5.0)
[2019-12-25] MEDS: ENOXAPARIN SODIUM INJ 40 MG/0.4 ML DISP.SYRIN SUBCUT SCH (11:03)
[2019-12-25] MEDS: FAMOTIDINE INJ/PF 20 MG/2 ML SDV IV SCH ×2 (11:03→21:33)
--- NOTE | 2019-12-25 19:42 | PSYCHOLOGICAL NOTE ---
Psych Note - Psych Note Date seen by psych provider: 12/25/19 Time seen by psych provider: 15:00 Psych Note: Reason for Consult: Overdose Patient reports that she thinks she refilled all her medications on Wednesday or . She denies taking too much of her medications or intentionally overdosing. Patient reports that she fell on Wednesday and was scared "to " because she had already taken off her necklace alarm so had to wait for help. Patient states she would never do anything to harm herself because of her "kids and dog." Patient reports that on Wednesday she was unable to get up because her entire right side was weak and she was unable to move. She reports that she has a long history of heart concerns and was supposed to see a provider for it. She reports that she was supposed to go for testing and confirm she already has a pacemaker. Patient denies any history of mental health concerns or any medications. When asked about her sleeping she reports that when she sleeps she does sleep very hard and her children do not wake her up when they come to visit. She reports that throughout the day she does sometimes doze off in her chair so she will go back to bed however at night she seems to be up a lot. Patient is alert and orientated to person and circumstance. Patient has significant difficulties in identifying where she lives. She is able to identify she is at the hospital however she does not know which hospital or where it is located. Mood is currently euthymic with congruent affect as evidenced by smiling and open engaging with clinician. Patient denies suicidal and homicidal ideation. Delusions are absent and behaviors congruent with an intact reality based presentation i.e. organized and linear thought process. Eye contact is well maintained. Conversational speech is overall within normal rate, tone and prosody. Intellectual abilities appear to be within the average range. Attention and concentration are fair. Insight, judgment, impulse control is fair. Medication recommendations per [facility]'s contracted psychiatrist Dr. Blanca TORRES are as follows please discontinue home medication of zoloft Impression/Plan: Patient is cleared from acute psychiatric services. There is some concern the patient has some is not fully orientated. She can identify she is in the hospital but can not tell where the hospital is located or what her home address is. Patient does adamantly denies taking too much of her medication. Chart review indicates concern the patient overdosed on her Tylenol with codeine. Patient's toxicology screening indicates the patient has no acetaminophen findings. She disclosed she has been having difficulties with her heart and was supposed to be following up with a specialist for testing. Dr. Jefferson was consulted on the care and management of this patient; attending physicians in agreement with recommendations and disposition..
[2019-12-25] MEDS ORDERED: NITROGLYCERIN 2% OINTMENT 1 GM PACKET TOP PRN (20:54)
[2019-12-25] MEDS ORDERED: NITROGLYCERIN 0.4 MG/TAB 25 TAB/BOTTLE SL PRN (20:54)
--- NOTE | 2019-12-25 20:54 | PDOC H&P ---
History of Present Illness Admission Date/PCP: 12/24/19 17:14 ARCHANA JOHNSON MD History of Present Illness: GAYLE DALY is a 84 year old female,She came to the emergency room yesterday for evaluation of possible overdose on medication. According to the ER record, patient was stated to be a poor historian the history stated that patient and family saw yesterday at about 5 PM and she was well she was found on the morning when she presented to the emergency room unresponsive, she did not respond to sternal rub she was given a dose of Narcan. But the urine toxicology did not d emonstrate any acetaminophen, patient uses Tylenol with codeine for control of chronic pain. When I saw patient on the floor she was alert oriented she was at her baseline, in the emergency room CT head was done which was negative.Unfortunately MRI of the brain could not be done because she has a p acemaker, I am not exactly sure why patient was unresponsive, medication was reviewed she uses phenobarbital for seizure, this may need to be discontinued. EEG be ordered for tomorrow morning to rule out any active seizure Past Medical History Cardiac Medical History: Reports: Coronary Artery Disease, Myocardial Infarction, Hypertension Neurological Medical History: Reports: Seizures Endocrine Medical History: Reports: Hypothyroidism Musculoskeltal Medical History: Reports: Fibromyalgia Psychiatric Medical History: Reports: Depression Past Surgical History Past Surgical History: Reports: Cardiac Catheterization - stentx1, Coronary Stent - X1, Hysterectomy Social History Smoking Status: Never Smoker Frequency of Alcohol Use: None Hx Recreational Drug Use: No Drugs: None Hx Prescription Drug Abuse: No - Advance Directive Resuscitation Status: Do Not Resuscitate Family History Family History: Reviewed & Not Pertinent Parental Family History Reviewed: Yes Children Family History Reviewed: Yes Sibling(s) Family History Reviewed.: Yes Medication/Allergy Home Medications: Bisoprolol Furmarate 5 mg PO BID 12/24/19 Clopidogrel Bisulfate [Plavix] 75 mg PO DAILY 12/24/19 Furosemide [Lasix 20 mg Tablet] 20 mg PO QAM 12/24/19 Levothyroxine Sodium [Synthroid] 175 mcg PO Q6AM 12/24/19 Nitroglycerin [Nitrostat 0.4 mg (1/150 Gr) Tabs 25/Bottle] 1 tab SL Q5MP PRN 12/24/19 Phenobarbital [Phenobarbital 64.8 Mg Tablet] 64.8 mg PO Q8 12/24/19 Rosuvastatin Calcium [Crestor] 20 mg PO QHS 12/24/19 Sertraline HCl 50 mg PO DAILY 12/24/19 Acetaminophen with Codeine [Tylenol with Codeine #4 Tablet] 1 tab PO Q6HP PRN 12/25/19 Aspirin [Adult Low Dose Aspirin EC] 81 mg PO DAILY 12/25/19 Ergocalciferol (Vitamin D2) [Drisdol 50,000 unit (1.25MG) Capsule] 50,000 unit PO EUCEDA 12/25/19 Lidocaine [Lidoderm 5% (700 mg) Transdermal Patch] 1 patch TD DAILYP PRN 12/25/19 Multivit-Min/Iron/Folic/Lutein [Centrum Silver Women Tablet] 1 tab PO DAILY 12/25/19 Nitroglycerin [Nitrol 2% Ointment 1Gm Packet] 1 applic TOP DAILYP PRN 12/25/19 Allergies/Adverse Reactions: aripiprazole [From Abilify] Allergy (Verified 12/24/19 10:36) atenolol Allergy (Verified 12/24/19 10:36) clarithromycin [From Biaxin] Allergy (Verified 12/24/19 10:36) doxepin Allergy (Verified 12/24/19 10:36) Iodinated Contrast Media [Iodinated Contrast- Oral and IV Dye] Allergy (Verified 12/24/19 10:36) isosorbide mononitrate [From Imdur] Allergy (Verified 12/24/19 10:36) lisinopril Allergy (Verified 12/24/19 10:36) meperidine HCl [From Demerol] Allergy (Verified 12/24/19 10:36) metoprolol Allergy (Verified 12/24/19 10:36) phenytoin sodium [From Dilantin] Allergy (Verified 12/24/19 10:36) prednisone Allergy (Verified 12/24/19 10:36) pregabalin [From Lyrica] Allergy (Verified 12/24/19 10:36) Review of Systems Constitutional: ABSENT: chills, fever(s), headache(s), weight gain, weight loss Eyes: ABSENT: visual disturbances Ears: ABSENT: hearing changes Cardiovascular: ABSENT: chest pain, dyspnea on exertion, edema, orthropnea, pa lpitations Respiratory: ABSENT: cough, hemoptysis Gastrointestinal: ABSENT: abdominal pain, constipation, diarrhea, hematemesis, hematochezia, nausea, vomiting Genitourinary: ABSENT: dysuria, hematuria Musculoskeletal: ABSENT: joint swelling Integumentary: ABSENT: rash, wounds Neurological: ABSENT: as per HPI, abnormal gait, abnormal movements, abnormal speech, dizziness, focal weakness, frequent falls, lack of coordination, memory loss, numbness, paresthesias, restless legs, syncope, tingling, tremor(s), vertigo, weakness, other Psychiatric: ABSENT: anxiety, depression, homidical ideation, suicidal ideation Endocrine: ABSENT: cold intolerance, heat intolerance, menstrual abnormalities, polydipsia, polyuria Hematologic/Lymphatic: ABSENT: easy bleeding, easy bruising, lymphadenopathy Physical Exam Vital Signs: Temp Pulse Resp BP Pulse Ox 98.4 F 79 16 102/64 93 12/25/19 15:11 12/25/19 15:11 12/25/19 15:11 12/25/19 15:11 12/25/19 15:11 Intake & Output 12/24/19 12/25/19 12/26/19 06:59 06:59 06:59 Intake Total 500 350 Output Total 850 250 Balance -350 100 Weight 73.9 kg General appearance: PRESENT: no acute distress, well-developed, well-nourished Head exam: PRESENT: atraumatic, normocephalic Eye exam: PRESENT: conjunctiva pink, EOMI, PERRLA Ear exam: PRESENT: normal external ear exam Mouth exam: PRESENT: moist, tongue midline Neck exam: PRESENT: full ROM Respiratory exam: PRESENT: clear to auscultation kaley Cardiovascular exam: PRESENT: RRR, +S1, +S2 Pulses: PRESENT: normal dorsalis pedis pul, +2 pedal pulses bilateral Vascular exam: PRESENT: normal capillary refill GI/Abdominal exam: PRESENT: normal bowel sounds, soft Rectal exam: PRESENT: deferred Neurological exam: PRESENT: alert, awake, oriented to person, oriented to place, oriented to time, oriented to situation, CN II-XII grossly intact Psychiatric exam: PRESENT: appropriate affect, normal mood Skin exam: PRESENT: dry, intact, warm Results Laboratory Results: 12/25/19 05:56 12/25/19 05:56 12/25/19 12/25/19 05:56 05:56 WBC 5.9 RBC 4.06 Hgb 13.1 Hct 37.9 MCV 94 MCH 32.3 MCHC 34.6 RDW 13.3 Plt Count 177 Seg Neutrophils % 54.2 Sodium 137.1 Potassium 4.1 D Chloride 102 Carbon Dioxide 30 Anion Gap 5 BUN 34 H Creatinine 0.89 Est GFR ( Amer) > 60 Glucose 102 Calcium 8.7 Total Bilirubin 0.3 AST 60 H Alkaline Phosphatase 102 Total Protein 6.1 L Albumin 3.6 12/24/19 12/24/19 11:18 17:35 Troponin I 0.886 0.716 NT-Pro-B Natriuret Pep 2060 H Impressions: Head CT 12/24/19 11:18 IMPRESSION: NORMAL BRAIN CT WITHOUT CONTRAST. EVIDENCE OF ACUTE STROKE: NO. Cervical Spine CT 12/24/19 11:19 IMPRESSION: CHRONIC DEGENERATIVE CHANGES. NO ACUTE FINDINGS. Assessment & Plan - Diagnosis (1) Encephalopathy Is this a current diagnosis for this admission?: Yes Plan: She has unspecified encephalopathy, EEG to be ordered, the metabolic panel is normal, hemogram is normal.EEG demonstrated very frequent occipitally predominant sharp waves and spikes and this frequently involved into brief electrographic seizures characterized by runs of sharp waves lasting 5 to 20 seconds with frequency in the 1 to 3 Hz range. These echographic seizures often had rather abrupt onset and termination. 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
[2019-12-25] MEDS ORDERED: BISOPROLOL 5 MG PO SCH (21:00)
[2019-12-25] MEDS: ATORVASTATIN CALCIUM 40 MG TABLET PO SCH (21:33)
[2019-12-25] MEDS: SERTRALINE HCL 50 MG TABLET PO SCH (21:34)
[2019-12-25] MEDS: CLOPIDOGREL BISULFATE 75 MG TABLET PO SCH (21:34)
[2019-12-25] MEDS: MULTIVITAMIN TABLET PO SCH (21:34)
[2019-12-25] MEDS: ASPIRIN 81 MG TABLET, ENT COATED PO SCH (21:34)
[2019-12-25] MEDS ORDERED: (PENDING PHARMACY ID) (Rosuvastatin Calcium [Crestor] 20 MG) PO SCH (22:00)
[2019-12-25] MEDS ORDERED: ATENOLOL 50 MG TABLET PO SCH (22:00)
[2019-12-26] MEDS ORDERED: (PENDING PHARMACY ID) (Levothyroxine Sodium [Synthroid] 175 MCG) PO SCH (06:00)
[2019-12-26] MEDS: LEVOTHYROXINE SODIUM 0.075 MG TABLET PO SCH (06:23)
[2019-12-26] MEDS: LEVOTHYROXINE SODIUM 0.1 MG TABLET PO SCH (06:23)
[2019-12-26] MEDS: FAMOTIDINE INJ/PF 20 MG/2 ML SDV IV SCH ×2 (09:35→21:27)
[2019-12-26] MEDS: CLOPIDOGREL BISULFATE 75 MG TABLET PO SCH (09:36)
[2019-12-26] MEDS: ASPIRIN 81 MG TABLET, ENT COATED PO SCH (09:36)
[2019-12-26] MEDS: FUROSEMIDE 20 MG TABLET PO SCH (09:36)
[2019-12-26] MEDS: ENOXAPARIN SODIUM INJ 40 MG/0.4 ML DISP.SYRIN SUBCUT SCH (09:36)
[2019-12-26] MEDS: MULTIVITAMIN TABLET PO SCH (09:36)
[2019-12-26] MEDS: SERTRALINE HCL 50 MG TABLET PO SCH (09:36)
[2019-12-26] MEDS ORDERED: BISOPROLOL 5 MG PO SCH (10:00)
--- NOTE | 2019-12-26 14:44 | NEURO WORKBENCH EEG REPORT ---
EEG Report Patient: Yakelin Valadez ID: [id number] Referring Doctor: Evan Vincent Date: 12/26/2019 Reason for study: Evaluate Epileptiform activity Medications: Aspirin, Lipitor, Plavix, Lovenox, Famotidine, Lasix, Synthroid, Zoloft, MVI History: This is a 84 year old female with a history of CHF, cardiac stents, HTN, depression, hypothyroidism, fibromyalgia, CVA, and seizures. The patient was admitted yesterday after being found unresponsive. This EEG was requested for evaluation of epileptiform activity. She takes phenobarbital at home. EEG Interpretation The beginning approximately 17 minutes of the recording was dominated by frontally predominant myogenic artifact obscuring the background activity. The awake backgound activity shows predominantly 4-7 Hz theta activity with occasional intermixed delta activity. Photic activation resulted in minimal photic driving. There were very frequent occipitally predominant sharp waves and spikes, and these frequently evolved into brief electrographic seizures characterized by runs of sharp waves lasting 5-20 seconds with frequencies in the 1-3 Hz range. These electrographic seizures often had rather abrupt onset and termination. There was no apparent clinical correlation with these electrographic seizures on video EEG, as the patient appeared to be be resting comfortably in bed at times with eyes open and at times with eyes closed. The EKG showed a regular rhythm with rates typically in the 60-70 range. EEG Impression This is a markedly abnormal EEG, and the frequent electrographic seizures noted would be consistent with a clinical diagnosis of nonconvulsive status- epilepticus. The localization of the epileptiform activity is suggestive of bilateral occipital epileptogenic foci, and cerebral imaging should be considered. The diffuse background slowing is consistent with diffuse cerebral dysfunction which is non-specific for etiology, but in this setting likely due to the frequent electrographic seizures noted. Treatment with an anti-epileptic medication is warranted and recommended. These findings were verbally relayed to Dr. Evan Vincent on December 26, 2011 at approximately 2:30 pm Eastern. INTERPRETING NEUROLOGIST: Gio Seth MD Board certified by the [place] [employer] in Neurology, Clinical Neurophysiology, and Sleep Medicine [facility]
[2019-12-26] MEDS: LEVETIRACETAM 1000 MG/NACL-ISO 1,000 MG/100 ML RTUPB IV SCH (15:43)
[2019-12-26] MEDS: ATORVASTATIN CALCIUM 40 MG TABLET PO SCH (21:27)
--- NOTE | 2019-12-26 21:30 | PDOC PROGRESS REPORT ---
Subjective Progress Note for:: 12/26/19 Subjective:: I spoke to patient's daughter she told me that patient has not took her medication in over 2 weeks, she has a history of seizure, she was supposed to be on phenobarbital, she said before she moved to [place] from [place] she tried various antiepileptic drug that was more effective the only Antiepileptic drug that is effective is phenobarbital, She lives by herself patient's daughter is worried Reason For Visit: ACCIDENTAL OVERDOSE BY CODEINE,CHF Physical Exam Vital Signs: Temp Pulse Resp BP Pulse Ox 98.6 F 82 18 116/75 99 12/26/19 20:00 12/26/19 20:00 12/26/19 20:00 12/26/19 20:00 12/26/19 20:00 Intake & Output 12/25/19 12/26/19 12/27/19 06:59 06:59 06:59 Intake Total 500 950 596 Output Total 850 800 300 Balance -350 150 296 Weight 73.9 kg 72.4 kg General appearance: PRESENT: no acute distress Eye exam: PRESENT: PERRLA Respiratory exam: PRESENT: clear to auscultation kaley Cardiovascular exam: PRESENT: +S1, +S2 GI/Abdominal exam: PRESENT: soft Neurological exam: PRESENT: alert, CN II-XII grossly intact Results Laboratory Results: 12/25/19 05:56 12/25/19 05:56 12/24/19 12/24/19 11:18 17:35 Troponin I 0.886 0.716 NT-Pro-B Natriuret Pep 2060 H Impressions: Head CT 12/24/19 11:18 IMPRESSION: NORMAL BRAIN CT WITHOUT CONTRAST. EVIDENCE OF ACUTE STROKE: NO. Cervical Spine CT 12/24/19 11:19 IMPRESSION: CHRONIC DEGENERATIVE CHANGES. NO ACUTE FINDINGS. Assessment & Plan - Diagnosis (1) Non-convulsive status epilepticus Is this a current diagnosis for this admission?: Yes Plan: Start IV Keppra,Repeat EEG in 72 hours (2) Encephalopathy Is this a current diagnosis for this admission?: Yes - Time Time Spent with patient: 25-34 minutes Level of Care: MEDICAL
[2019-12-27] MEDS: LEVOTHYROXINE SODIUM 0.075 MG TABLET PO SCH (05:46)
[2019-12-27] MEDS: LEVETIRACETAM 1000 MG/NACL-ISO 1,000 MG/100 ML RTUPB IV SCH ×2 (05:46→17:55)
[2019-12-27] MEDS: LEVOTHYROXINE SODIUM 0.1 MG TABLET PO SCH (05:46)
[2019-12-27] MEDS: FUROSEMIDE 20 MG TABLET PO SCH (10:34)
[2019-12-27] MEDS: SERTRALINE HCL 50 MG TABLET PO SCH (10:34)
[2019-12-27] MEDS: ASPIRIN 81 MG TABLET, ENT COATED PO SCH (10:34)
[2019-12-27] MEDS: CLOPIDOGREL BISULFATE 75 MG TABLET PO SCH (10:34)
[2019-12-27] MEDS: MULTIVITAMIN TABLET PO SCH (10:34)
[2019-12-27] MEDS: ENOXAPARIN SODIUM INJ 40 MG/0.4 ML DISP.SYRIN SUBCUT SCH (10:35)
[2019-12-27] MEDS: FAMOTIDINE INJ/PF 20 MG/2 ML SDV IV SCH ×2 (10:38→21:18)
[2019-12-27] MEDS: ACETAMINOPHEN WITH CODEINE #3 TABLET PO PRN (16:02)
--- NOTE | 2019-12-27 17:34 | PDOC PROGRESS REPORT ---
Subjective Progress Note for:: 12/27/19 Subjective:: I spoke to patient's daughter she told me that patient has not took her medication in over 2 weeks, she has a history of seizure, she was supposed to be on phenobarbital, she said before she moved to [place] from [place] she tried various antiepileptic drug that was more effective the only Antiepileptic drug that is effective is phenobarbital, She lives by herself patient's daughter is worried Reason For Visit: ACCIDENTAL OVERDOSE BY CODEINE,CHF Physical Exam Vital Signs: Temp Pulse Resp BP Pulse Ox 98.8 F 113 H 14 127/80 H 92 12/27/19 15:26 12/27/19 15:26 12/27/19 15:26 12/27/19 15:26 12/27/19 15:26 Intake & Output 12/26/19 12/27/19 12/28/19 06:59 06:59 06:59 Intake Total 950 966 237 Output Total 800 1440 Balance 150 -474 237 Weight 72.4 kg 72.5 kg General appearance: PRESENT: no acute distress Cardiovascular exam: PRESENT: +S1, +S2 GI/Abdominal exam: PRESENT: soft Neurological exam: PRESENT: alert Results Laboratory Results: 12/25/19 05:56 12/25/19 05:56 12/24/19 12/24/19 11:18 17:35 Troponin I 0.886 0.716 NT-Pro-B Natriuret Pep 2060 H Impressions: Head CT 12/24/19 11:18 IMPRESSION: NORMAL BRAIN CT WITHOUT CONTRAST. EVIDENCE OF ACUTE STROKE: NO. Cervical Spine CT 12/24/19 11:19 IMPRESSION: CHRONIC DEGENERATIVE CHANGES. NO ACUTE FINDINGS. Assessment & Plan - Diagnosis (1) Non-convulsive status epilepticus Is this a current diagnosis for this admission?: Yes Plan: continue IV Keppra,Repeat EEG in 72 hours (2) Encephalopathy Is this a current diagnosis for this admission?: Yes - Time Time Spent with patient: 15-24 minutes Level of Care: MEDICAL
[2019-12-27] MEDS: BISOPROLOL 5 MG PO SCH (21:18)
[2019-12-27] MEDS: ATORVASTATIN CALCIUM 40 MG TABLET PO SCH (21:19)
[2019-12-27] MEDS ORDERED: BISOPROLOL FUMARATE 5 MG PO SCH (22:00)
[2019-12-28] MEDS: LEVOTHYROXINE SODIUM 0.1 MG TABLET PO SCH (06:01)
[2019-12-28] MEDS: LEVOTHYROXINE SODIUM 0.075 MG TABLET PO SCH (06:01)
[2019-12-28] MEDS: LEVETIRACETAM 1000 MG/NACL-ISO 1,000 MG/100 ML RTUPB IV SCH ×2 (06:01→17:22)
[2019-12-28] MEDS: FUROSEMIDE 20 MG TABLET PO SCH (08:09)
[2019-12-28] MEDS: ACETAMINOPHEN WITH CODEINE #3 TABLET PO PRN ×2 (08:11→14:08)
[2019-12-28 10:00] LABS: ABSOLUTE EOSINOPHILS # (AUTO) 0.1 10^3/uL (0.0-0.6); ABSOLUTE LYMPHOCYTES (AUTO) 1.7 10^3/uL (0.5-4.7); ABSOLUTE MONOCYTES (AUTO) 0.6 10^3/uL (0.1-1.4); ABSOLUTE NEUT (AUTO) 3.8 10^3/uL (1.7-8.2); BASOPHILS % (AUTO) 0.7 % (0-2); EOSINOPHILS % (AUTO) 1.7 % (0-6); HEMATOCRIT 40.4 % (36.0-47.0); LYMPHOCYTES % (AUTO) 26.7 % (13-45); MEAN CORPUSCULAR HEMOGLOBIN 32.2 pg (27.0-33.4); MEAN CORPUSCULAR HGB CONC 34.8 g/dL (32.0-36.0); MEAN CORPUSCULAR VOLUME 93 fl (80-97); MONOCYTES % (AUTO) 9.6 % (3-13); PLATELET COUNT 195 10^3/uL (150-450); RED BLOOD COUNT 4.36 10^6/uL (3.72-5.28); RED CELL DISTRIBUTION WIDTH 13.2 % (11.5-14.0); SEGMENTED NEUTROPHILS % (AUTO) 61.3 % (42-78); TOTAL CELLS COUNTED % (AUTO) 100 %; WHITE BLOOD COUNT 6.2 10^3/uL (4.0-10.5)
[2019-12-28] MEDS: CLOPIDOGREL BISULFATE 75 MG TABLET PO SCH (10:12)
[2019-12-28] MEDS: SERTRALINE HCL 50 MG TABLET PO SCH (10:12)
[2019-12-28] MEDS: MULTIVITAMIN TABLET PO SCH (10:13)
[2019-12-28] MEDS: ENOXAPARIN SODIUM INJ 40 MG/0.4 ML DISP.SYRIN SUBCUT SCH (10:13)
[2019-12-28] MEDS: ASPIRIN 81 MG TABLET, ENT COATED PO SCH (10:13)
[2019-12-28] MEDS: FAMOTIDINE INJ/PF 20 MG/2 ML SDV IV SCH (10:13)
[2019-12-28] MEDS: BISOPROLOL 5 MG PO SCH ×2 (10:14→21:45)
[2019-12-28 10:15] LABS: ALBUMIN 3.7 g/dL (3.5-5.0); ALKALINE PHOSPHATASE 108 U/L (38-126); ANION GAP 6 (5-19); ASPARTATE AMINO TRANSFERASE 76 U/L (14-36); BILIRUBIN,TOTAL 0.5 mg/dL (0.2-1.3); BLOOD UREA NITROGEN 25 mg/dL (7-20); CALCIUM 8.7 mg/dL (8.4-10.2); CARBON DIOXIDE 31 mmol/L (22-30); CHLORIDE 99 mmol/L (98-107); GLUCOSE 114 mg/dL (75-110); POTASSIUM 3.8 mmol/L (3.6-5.0); TOTAL PROTEIN 6.4 g/dL (6.3-8.2)
--- NOTE | 2019-12-28 13:30 | NEURO WORKBENCH EEG REPORT ---
EEG Report Patient: Yakelin Valadez ID: [id number] Referring Doctor: Evan Vincent Date: 12/28/2019 Reason for study: Evaluate Epileptiform activity Medications: Aspirin, Lipitor, Plavix, Lovenox, Famotidine, Lasix, Synthroid, Zoloft, MVI, Keppra History: This is a 84 year old female with a history of CHF, cardiac stents, HTN, depression, hypothyroidism, fibromyalgia, CVA, and seizures. The patient was admitted yesterday after being found unresponsive. This EEG was requested for evaluation of epileptiform activity. She takes phenobarbital at home. EEG Interpretation There was frontally predominant myogenic artifact obscuring the background activity during portions of the EEG. This was predominantly an awake EEG with minimal drowsiness. The awake backgound activity shows predominantly theta activity with intermixed alpha activity and occasional intermixed delta activity. There was no asymmetry noted in the theta and delta activity. Photic activation resulted in minimal photic driving. There was not a prominent posterior dominant rhythm but rarely during highest alertness the appearance of posterior dominant 8 Hz alpha activity. There were rare occipitally predominant sharp waves as noted in the prior EEG. There were no electrographic seizures. The EKG showed a regular rhythm with rates typically in the 65-75 range. EEG Impression This EEG is markedly improved from the prior EEG done on 12/26/2019. There were no electrographic seizures, and the occipitally predominant sharp waves are rare on this study. It is noted that the patient was started on Keppra since the prior EEG, and continuation of anti-epileptic medications seems clinically relevant. The wakefulness background is certainly improved from the prior study, but still shows some background slowing with frequent theta and intermixed delta activity which is non-specific for etiology but suggestive of an encephalopathy. Cerebral imaging should still be considered for evaluation of a possible underlying structural etiology for the occipital sharp waves. INTERPRETING NEUROLOGIST: Gio Seth MD Board certified by the [place] [employer] in Neurology, Clinical Neurophysiology, and Sleep Medicine [facility]
--- NOTE | 2019-12-28 19:51 | PDOC PROGRESS REPORT ---
Subjective Progress Note for:: 12/28/19 Subjective:: Patient seen by the bedside, the repeat EEG today showed marked improvement from the first EEG, she has been on intravenous Keppra this to be transitioned to p.o. Keppra. I offered patient the option of in facility rehabilitation but she declined that option she wants to go home I will need to discuss discharge plan with the daughter. The EEG done today did not demonstrate any electrographic seizure that was the case for the last EEG signifying marked improvement Reason For Visit: ACCIDENTAL OVERDOSE BY CODEINE,CHF Physical Exam Vital Signs: Temp Pulse Resp BP Pulse Ox 98.5 F 76 15 121/83 96 12/28/19 14:59 12/28/19 14:59 12/28/19 14:59 12/28/19 14:59 12/28/19 14:59 Intake & Output 12/27/19 12/28/19 12/29/19 06:59 06:59 06:59 Intake Total 966 1141 455 Output Total 1440 1495 825 Balance -366 -112 -691 Weight 72.5 kg 73.2 kg General appearance: PRESENT: no acute distress Eye exam: PRESENT: PERRLA Respiratory exam: PRESENT: clear to auscultation kaley Cardiovascular exam: PRESENT: +S1, +S2 GI/Abdominal exam: PRESENT: soft Neurological exam: PRESENT: alert, CN II-XII grossly intact Results Laboratory Results: 12/28/19 09:34 12/28/19 09:34 12/28/19 12/28/19 09:34 09:34 WBC 6.2 RBC 4.36 Hgb 14.0 Hct 40.4 MCV 93 MCH 32.2 MCHC 34.8 RDW 13.2 Plt Count 195 Seg Neutrophils % 61.3 Sodium 135.9 L Potassium 3.8 Chloride 99 Carbon Dioxide 31 H Anion Gap 6 BUN 25 H Creatinine 0.88 Est GFR ( Amer) > 60 Glucose 114 H Calcium 8.7 Total Bilirubin 0.5 AST 76 H Alkaline Phosphatase 108 Total Protein 6.4 Albumin 3.7 12/24/19 12/24/19 11:18 17:35 Troponin I 0.886 0.716 NT-Pro-B Natriuret Pep 2060 H Impressions: Head CT 12/24/19 11:18 IMPRESSION: NORMAL BRAIN CT WITHOUT CONTRAST. EVIDENCE OF ACUTE STROKE: NO. Cervical Spine CT 12/24/19 11:19 IMPRESSION: CHRONIC DEGENERATIVE CHANGES. NO ACUTE FINDINGS. Assessment & Plan - Diagnosis (1) Non-convulsive status epilepticus Is this a current diagnosis for this admission?: Yes Plan: EEG improved, transition to p.o. Keppra (2) Encephalopathy Is this a current diagnosis for this admission?: Yes (3) Coronary artery disease Qualifiers: Coronary Disease-Associated Artery/Lesion type: [place] artery [place] vs. transplanted heart: [place] heart Associated angina: without angina Qualified Code(s): I25.10 - Atherosclerotic heart disease of [place] coronary artery without angina pectoris Is this a current diagnosis for this admission?: Yes - Time Time Spent with patient: 25-34 minutes Level of Care: MEDICAL Medications reviewed and adjusted accordingly: Yes
[2019-12-28] MEDS: ATORVASTATIN CALCIUM 40 MG TABLET PO SCH (21:45)
[2019-12-28] MEDS: FAMOTIDINE 20 MG TABLET PO SCH (21:45)
[2019-12-29] MEDS: ACETAMINOPHEN WITH CODEINE #3 TABLET PO PRN ×3 (03:58→21:21)
[2019-12-29] MEDS: LEVETIRACETAM 500 MG TABLET PO SCH ×2 (06:12→17:08)
[2019-12-29] MEDS: LEVOTHYROXINE SODIUM 0.075 MG TABLET PO SCH (06:12)
[2019-12-29] MEDS: LEVOTHYROXINE SODIUM 0.1 MG TABLET PO SCH (06:12)
[2019-12-29] MEDS: FUROSEMIDE 20 MG TABLET PO SCH (07:38)
[2019-12-29] MEDS: BISOPROLOL 5 MG PO SCH ×2 (09:35→21:15)
[2019-12-29] MEDS: SERTRALINE HCL 50 MG TABLET PO SCH (09:35)
[2019-12-29] MEDS: ASPIRIN 81 MG TABLET, ENT COATED PO SCH (09:35)
[2019-12-29] MEDS: FAMOTIDINE 20 MG TABLET PO SCH ×2 (09:35→21:12)
[2019-12-29] MEDS: CLOPIDOGREL BISULFATE 75 MG TABLET PO SCH (09:36)
[2019-12-29] MEDS: MULTIVITAMIN TABLET PO SCH (09:36)
[2019-12-29] MEDS: ENOXAPARIN SODIUM INJ 40 MG/0.4 ML DISP.SYRIN SUBCUT SCH (09:36)
[2019-12-29] MEDS: ATORVASTATIN CALCIUM 40 MG TABLET PO SCH (21:12)
--- NOTE | 2019-12-29 23:09 | PDOC PROGRESS REPORT ---
Subjective Progress Note for:: 12/29/19 Subjective:: Patient seen by the bedside, the repeat EEG today showed marked improvement from the first EEG, she has been on intravenous Keppra this to be transitioned to p.o. Keppra. I offered patient the option of in facility rehabilitation but she declined that option she wants to go home I will need to discuss discharge plan with the daughter. The EEG done today did not demonstrate any electrographic seizure that was the case for the last EEG signifying marked improvement Patient be discharged home tomorrow Reason For Visit: ACCIDENTAL OVERDOSE BY CODEINE,CHF Physical Exam Vital Signs: Temp Pulse Resp BP Pulse Ox 99.2 F 78 17 130/80 H 95 12/29/19 20:55 12/29/19 20:55 12/29/19 20:55 12/29/19 20:55 12/29/19 20:55 Intake & Output 12/28/19 12/29/19 12/30/19 06:59 06:59 06:59 Intake Total 1141 565 474 Output Total 1495 1425 875 Balance -354 -860 -401 Weight 73.2 kg 73.5 kg General appearance: PRESENT: no acute distress Eye exam: PRESENT: PERRLA Respiratory exam: PRESENT: clear to auscultation kaley Cardiovascular exam: PRESENT: +S1, +S2 GI/Abdominal exam: PRESENT: soft Neurological exam: PRESENT: alert, CN II-XII grossly intact Results Laboratory Results: 12/28/19 09:34 12/28/19 09:34 12/24/19 15:07 Blood Blood Culture - Final NO GROWTH IN 5 DAYS 12/24/19 15:01 Blood Blood Culture - Final NO GROWTH IN 5 DAYS 12/24/19 12/24/19 11:18 17:35 Troponin I 0.886 0.716 NT-Pro-B Natriuret Pep 2060 H Impressions: Head CT 12/24/19 11:18 IMPRESSION: NORMAL BRAIN CT WITHOUT CONTRAST. EVIDENCE OF ACUTE STROKE: NO. Cervical Spine CT 12/24/19 11:19 IMPRESSION: CHRONIC DEGENERATIVE CHANGES. NO ACUTE FINDINGS. Assessment & Plan - Diagnosis (1) Non-convulsive status epilepticus Is this a current diagnosis for this admission?: Yes Plan: continue treatment (2) Encephalopathy Is this a current diagnosis for this admission?: Yes (3) Coronary artery disease Qualifiers: Coronary Disease-Associated Artery/Lesion type: [place] artery [place] vs. transplanted heart: [place] heart Associated angina: without angina Qualified Code(s): I25.10 - Atherosclerotic heart disease of [place] coronary artery without angina pectoris Is this a current diagnosis for this admission?: Yes - Time Time Spent with patient: 15-24 minutes Level of Care: IMCU
[2019-12-30] MEDS: LEVOTHYROXINE SODIUM 0.075 MG TABLET PO SCH (05:20)
[2019-12-30] MEDS: LEVOTHYROXINE SODIUM 0.1 MG TABLET PO SCH (05:20)
[2019-12-30] MEDS: LEVETIRACETAM 500 MG TABLET PO SCH (05:20)
--- NOTE | 2019-12-30 08:24 | PDOC DISCHARGE SUMMARY ---
Impression - Admit/DC Date/PCP Admission Date/Primary Care Provider: 12/26/19 13:17 ARCHANA JOHNSON MD Discharge Date: 12/30/19 - Discharge Diagnosis (1) Non-convulsive status epilepticus Is this a current diagnosis for this admission?: Yes (2) Encephalopathy Is this a current diagnosis for this admission?: Yes (3) Coronary artery disease Is this a current diagnosis for this admission?: Yes - Additional Information Resuscitation Status: Do Not Resuscitate Referrals: ARCHANA JOHNSON MD [Primary Care Provider] - Follow up as needed (F/U 7-10 DAYS) Home Medications: Bisoprolol Furmarate 5 mg PO BID 12/24/19 RX: Clopidogrel Bisulfate [Plavix] 75 mg PO DAILY 12/24/19 RX: Furosemide [Lasix 20 mg Tablet] 20 mg PO QAM 12/24/19 RX: Levothyroxine Sodium [Synthroid] 175 mcg PO Q6AM 12/24/19 RX: Nitroglycerin [Nitrostat 0.4 mg (1/150 Gr) Tabs 25/Bottle] 1 tab SL Q5MP PRN 12/24/19 RX: Phenobarbital [Phenobarbital 64.8 mg Tablet] 64.8 mg PO Q8 12/24/19 RX: Rosuvastatin Calcium [Crestor] 20 mg PO QHS 12/24/19 RX: Sertraline HCl 50 mg PO DAILY 12/24/19 RX: Acetaminophen with Codeine [Tylenol with Codeine #4 Tablet] 1 tab PO Q6HP PRN 12/25/19 RX: Aspirin [Adult Low Dose Aspirin EC] 81 mg PO DAILY 12/25/19 RX: Ergocalciferol (Vitamin D2) [Drisdol 50,000 unit (1.25MG) Capsule] 50,000 unit PO EUCEDA 12/25/19 RX: Lidocaine [Lidoderm 5% (700 mg) Transdermal Patch] 1 patch TD DAILYP PRN 12/25/19 RX: Multivit-Min/Iron/Folic/Lutein [Centrum Silver Women Tablet] 1 tab PO DAILY 12/25/19 RX: Nitroglycerin [Nitrol 2% Ointment 1Gm Packet] 1 applic TOP DAILYP PRN 12/25/19 History of Present Illiness History of Present Illness: GAYLE DALY is a 84 year old female,She came to the emergency room yesterday for evaluation of possible overdose on medication. According to the ER record, patient was stated to be a poor historian the history stated that patient and family saw yesterday at about 5 PM and she was well she was found on the morning when she presented to the emergency room unresponsive, she did not respond to sternal rub she was given a dose of Narcan. But the urine toxicology did not demonstrate any acetaminophen, patient uses Tylenol with codeine for control of chronic pain. When I saw patient on the floor she was alert oriented she was at her baseline, in the emergency room CT head was done which was negative.Unfortunately MRI of the brain could not be done because she has a pacemaker, I am not exactly sure why patient was unresponsive, medication was reviewed she uses phenobarbital for seizure, this may need to be discontinued. EEG be ordered for tomorrow morning to rule out any active seizure Hospital Course Hospital Course: Patient was admitted for the management of nonconvulsive status epilepticus, she has a history of epilepsy, she was supposed to be on phenobarbital, patient apparently has not been taking the medication for the epilepsy, she lives by herself, initially there was a concern that she probably overdosed on the medication because she was brought seen unresponsive to the hospital for evaluation. But the urine drug screen was negative for any acetaminophen, the main concern was that she probably overdosed on the Tylenol with codeine. The patient's daughter ultimately found that she has not been taking her medication for seizure and also for other medical conditions, when I interrogated she stated that she was tired of taking too many medications and that is the reason why she was not taking her medications, she was only taking the pain medication Tylenol with codeine. The seizure was treated with intravenous Keppra, the initial EEG demonstrated active seizure, consistent with status epilepticus subsequent EEG was now normal, demonstrated resolution of the seizure activities. The drug of choice for the antiseizure medication was phenobarbitone patient could not tolerate previous antiseizure medications including Keppra, Dilantin etc. and the treating neurologist from previous encounter prescribed phenobarbitone and she has been on the medication for very long time. She has other underlining chronic comorbidities including ischemic heart disease, hypertension. Patient is ready for discharge, she was given the option of in facility rehabilitation but she declined that option Physical Exam Vital Signs: Temp Pulse Resp BP Pulse Ox 98.3 F 61 17 103/46 L 93 12/29/19 23:51 12/30/19 02:00 12/29/19 23:51 12/29/19 23:51 12/30/19 05:47 Intake & Output 12/29/19 12/30/19 12/31/19 06:59 06:59 06:59 Intake Total 565 874 Output Total 1425 875 Balance -860 -1 Weight 73.5 kg 75.1 kg General appearance: PRESENT: no acute distress Eye exam: PRESENT: PERRLA Respiratory exam: PRESENT: clear to auscultation kaley Cardiovascular exam: PRESENT: +S1, +S2 GI/Abdominal exam: PRESENT: soft Neurological exam: PRESENT: alert, CN II-XII grossly intact Results Laboratory Results: WBC 6.2 10^3/uL (4.0-10.5) 12/28/19 09:34 RBC 4.36 10^6/uL (3.72-5.28) 12/28/19 09:34 Hgb 14.0 g/dL (12.0-15.5) 12/28/19 09:34 Hct 40.4 % (36.0-47.0) 12/28/19 09:34 MCV 93 fl (80-97) 12/28/19 09:34 MCH 32.2 pg (27.0-33.4) 12/28/19 09:34 MCHC 34.8 g/dL (32.0-36.0) 12/28/19 09:34 RDW 13.2 % (11.5-14.0) 12/28/19 09:34 Plt Count 195 10^3/uL (150-450) 12/28/19 09:34 Lymph % (Auto) 26.7 % (13-45) 12/28/19 09:34 [place] % (Auto) 9.6 % (3-13) 12/28/19 09:34 Eos % (Auto) 1.7 % (0-6) 12/28/19 09:34 Baso % (Auto) 0.7 % (0-2) 12/28/19 09:34 Absolute Neuts (auto) 3.8 10^3/uL (1.7-8.2) 12/28/19 09:34 Absolute Lymphs (auto) 1.7 10^3/uL (0.5-4.7) 12/28/19 09:34 Absolute Monos (auto) 0.6 10^3/uL (0.1-1.4) 12/28/19 09:34 Absolute Eos (auto) 0.1 10^3/uL (0.0-0.6) 12/28/19 09:34 Absolute Basos (auto) 0.0 10^3/uL (0.0-0.2) 12/28/19 09:34 Seg Neutrophils % 61.3 % (42-78) 12/28/19 09:34 PT 14.5 SEC (11.4-15.4) 12/24/19 17:35 INR 1.12 12/24/19 17:35 APTT 28.5 SEC (23.5-35.8) 12/24/19 17:35 VBG pH 7.16 (7.30-7.42) L* 12/24/19 15:01 VBG pCO2 82.6 mmHg (35-63) H* 12/24/19 15:01 VBG HCO3 29.0 mmol/L (20-32) 12/24/19 15:01 VBG Base Excess -2.1 mmol/L 12/24/19 15:01 Sodium 135.9 mmol/L (137-145) L 12/28/19 09:34 Potassium 3.8 mmol/L (3.6-5.0) 12/28/19 09:34 Chloride 99 mmol/L (98-107) 12/28/19 09:34 Carbon Dioxide 31 mmol/L (22-30) H 12/28/19 09:34 Anion Gap 6 (5-19) 12/28/19 09:34 BUN 25 mg/dL (7-20) H 12/28/19 09:34 Creatinine 0.88 mg/dL (0.52-1.25) 12/28/19 09:34 Est GFR ( Amer) > 60 (>60) 12/28/19 09:34 Est GFR (Non-Af Amer) Cancelled 12/24/19 10:18 Est GFR (MDRD) Non-Af > 60 (>60) 12/28/19 09:34 Glucose 114 mg/dL (75-110) H 12/28/19 09:34 Lactic Acid 1.1 mmol/L (0.7-2.1) 12/24/19 15:01 Calcium 8.7 mg/dL (8.4-10.2) 12/28/19 09:34 Total Bilirubin 0.5 mg/dL (0.2-1.3) 12/28/19 09:34 Direct Bilirubin 0.0 mg/dL (0.0-0.4) 12/28/19 09:34 Neonat Total Bilirubin Not Reportable 12/28/19 09:34 Neonat Direct Bilirubin Not Reportable 12/28/19 09:34 Neonat Indirect Bili Not Reportable 12/28/19 09:34 AST 76 U/L (14-36) H 12/28/19 09:34 ALT 64 U/L (<35) H 12/28/19 09:34 Alkaline Phosphatase 108 U/L (38-126) 12/28/19 09:34 Troponin I 0.716 ng/mL 12/24/19 17:35 NT-Pro-B Natriuret Pep 2060 pg/mL (<450) H 12/24/19 11:18 Total Protein 6.4 g/dL (6.3-8.2) 12/28/19 09:34 Albumin 3.7 g/dL (3.5-5.0) 12/28/19 09:34 EGFR Cancelled 12/24/19 10:18 Urine Color YELLOW 12/24/19 10:18 Urine Appearance SLIGHTLY-CLOUDY 12/24/19 10:18 Urine pH 5.0 (5.0-9.0) 12/24/19 10:18 Ur Specific [place] 1.017 12/24/19 10:18 Urine Protein NEGATIVE mg/dL (NEGATIVE) 12/24/19 10:18 Urine Glucose (UA) NEGATIVE mg/dL (NEGATIVE) 12/24/19 10:18 Urine Ketones NEGATIVE mg/dL (NEGATIVE) 12/24/19 10:18 Urine Blood NEGATIVE (NEGATIVE) 12/24/19 10:18 Urine Nitrite NEGATIVE (NEGATIVE) 12/24/19 10:18 Urine Bilirubin NEGATIVE (NEGATIVE) 12/24/19 10:18 Urine Urobilinogen NEGATIVE mg/dL (<2.0) 12/24/19 10:18 Ur Leukocyte Esterase NEGATIVE (NEGATIVE) 12/24/19 10:18 Urine WBC (Auto) 1 /HPF 12/24/19 10:18 Urine RBC (Auto) 1 /HPF 12/24/19 10:18 Urine Bacteria (Auto) TRACE /HPF 12/24/19 10:18 Squamous Epi Cells Auto <1 /HPF 12/24/19 10:18 Urine Mucus (Auto) RARE /LPF 12/24/19 10:18 Urine Ascorbic Acid 40 (NEGATIVE) H 12/24/19 10:18 Salicylates < 1.0 mg/dL (2.0-20.0) L 12/24/19 11:18 Urine Opiates Screen UNCONFIRMED POSITIVE 12/24/19 10:18 Urine Methadone Screen NEGATIVE 12/24/19 10:18 Acetaminophen < 10 ug/mL (10-30) L 12/24/19 11:18 Ur Barbiturates Screen UNCONFIRMED POSITIVE 12/24/19 10:18 Ur Phencyclidine Scrn NEGATIVE 12/24/19 10:18 Ur Amphetamines Screen NEGATIVE 12/24/19 10:18 U Benzodiazepines Scrn NEGATIVE 12/24/19 10:18 Urine Cocaine Screen NEGATIVE 12/24/19 10:18 U Marijuana (THC) Screen NEGATIVE 12/24/19 10:18 Serum Alcohol < 10 mg/dL (NONE DETECTED) 12/24/19 11:18 12/24/19 12/24/19 11:18 17:35 Troponin I 0.886 0.716 NT-Pro-B Natriuret Pep 2060 H Impressions: Head CT 12/24/19 11:18 IMPRESSION: NORMAL BRAIN CT WITHOUT CONTRAST. EVIDENCE OF ACUTE STROKE: NO. Cervical Spine CT 12/24/19 11:19 IMPRESSION: CHRONIC DEGENERATIVE CHANGES. NO ACUTE FINDINGS. Stroke Is this a Stroke Patient?: No Acute Heart Failure - Is this a Heart Failure Patient?: No
[2019-12-30] MEDS: FUROSEMIDE 20 MG TABLET PO SCH (08:42)
[2019-12-30] MEDS: FAMOTIDINE 20 MG TABLET PO SCH (09:09)
[2019-12-30] MEDS: ACETAMINOPHEN WITH CODEINE #3 TABLET PO PRN ×2 (09:09→15:47)
[2019-12-30] MEDS: ASPIRIN 81 MG TABLET, ENT COATED PO SCH (09:09)
[2019-12-30] MEDS: CLOPIDOGREL BISULFATE 75 MG TABLET PO SCH (09:10)
[2019-12-30] MEDS: MULTIVITAMIN TABLET PO SCH (09:10)
[2019-12-30] MEDS: BISOPROLOL 5 MG PO SCH (09:10)
[2019-12-30] MEDS: ENOXAPARIN SODIUM INJ 40 MG/0.4 ML DISP.SYRIN SUBCUT SCH (09:10)
[2019-12-30] MEDS: SERTRALINE HCL 50 MG TABLET PO SCH (09:10)
[2019-12-30 13:47] VITALS: BP 96/60
[2019-12-31] MEDS ORDERED: ERGOCALCIFEROL (VITAMIN D2) 50000 UNIT (1.25 MG) CAPSULE PO SCH (20:54)
== END 2019-12-30 16:15 | disposition home health service (06) | DRG 101 ==
LOC: ER 10:00 → EH 17:14 → 4S 18:42 → OBSVTOIN 12-26 13:17
PROVIDERS: ADMIT Internal Medicine Geriatric Medicine; ATTEND Internal Medicine
DX: G40.801 Other epilepsy, not intractable, with status epilepticus (principal); G93.40 Encephalopathy, unspecified; I25.10 Atherosclerotic heart disease of native coronary artery without angina pectoris; I50.9 Heart failure, unspecified; I11.0 Hypertensive heart disease with heart failure; E03.9 Hypothyroidism, unspecified; T40.2X1A Poisoning by other opioids, accidental (unintentional), initial encounter; T42.3X1A Poisoning by barbiturates, accidental (unintentional), initial encounter; I67.1 Cerebral aneurysm, nonruptured; M79.7 Fibromyalgia; F32.9 Major depressive disorder, single episode, unspecified; I25.2 Old myocardial infarction; Y92.018 Other place in single-family (private) house as the place of occurrence of the external cause; Z79.01 Long term (current) use of anticoagulants; Z79.899 Other long term (current) drug therapy; Z60.2 Problems related to living alone
CPT/HCPCS: 36415; 51702; 70450; 71045; 72125; 80053; 80307; 81001; 82803; 83605; 83880; 84484; 85025; 85610; 85730; 87040; 93005; 93010; 95819; 96361; 96374; 96375; 99285; G0378; J1650; J1940; J1953; J2060; J2310; J2560; J7040; S0028

== ENCOUNTER 2020-06-17 14:47 | Emergency (ER) | payer MEDICARE, MEDICAID ==
--- NOTE | 2020-06-17 15:03 | ER Document Report ---
ED Medical Screen (RME) - General Chief Complaint: Chest Pain Stated Complaint: CHEST PAIN Time Seen by Provider: 06/17/20 15:02 Primary Care Provider: ARCHANA JOHNSON MD [Primary Care Provider] - Follow up as needed Mode of Arrival: Medic Information source: Patient Notes: 84-year-old female presented to ED for chest pain. She states she has been having the chest pain intermittently since yesterday. She states she put her dog out and then went and laid down and then her daughter found her in the bed passed out. She thought she had just gone to sleep but the daughter states she was passed out. Patient is a DO NOT RESUSCITATE she does have a DO NOT RESUSCITATE yellow sheet at her bedside. I have ordered a chest pain work-up. She has already had aspirin and 3 nitros before coming to the emergency room. She states she is still having some pain I have ordered her morphine 2 mg and Zofran 4 mg as well as IV fluids. I did get a blood pressure of 120/70 on the left arm manually. She is alert and oriented she is twitching. She states she does have pain but she does not really like to take stuff. She has agreed to take the morphine and Zofran. Patient is on the monitor I have greeted and performed a rapid initial assessment of this patient. A comprehensive ED assessment and evaluation of the patient, analysis of test results and completion of medical decision making process will be conducted by an additional ED providers. TRAVEL OUTSIDE OF THE [place] IN LAST 30 DAYS: No - Related Data Allergies/Adverse Reactions: aripiprazole [From Abilify] Allergy (Verified 12/24/19 10:36) atenolol Allergy (Verified 12/24/19 10:36) clarithromycin [From Biaxin] Allergy (Verified 12/24/19 10:36) doxepin Allergy (Verified 12/24/19 10:36) Iodinated Contrast Media [Iodinated Contrast- Oral and IV Dye] Allergy (Verified 12/24/19 10:36) isosorbide mononitrate [From Imdur] Allergy (Verified 12/24/19 10:36) lisinopril Allergy (Verified 12/24/19 10:36) meperidine HCl [From Demerol] Allergy (Verified 12/24/19 10:36) metoprolol Allergy (Verified 12/24/19 10:36) phenytoin sodium [From Dilantin] Allergy (Verified 12/24/19 10:36) prednisone Allergy (Verified 12/24/19 10:36) pregabalin [From Lyrica] Allergy (Verified 12/24/19 10:36) Past Medical History - Past Medical History Cardiac Medical History: Reports: Hx Congestive Heart Failure, Hx Coronary Artery Disease, Hx Heart Attack, Hx Hypertension Neurological Medical History: Reports: Hx Seizures Endocrine Medical History: Reports: Hx Hypothyroidism Renal/ Medical History: Denies: Hx Peritoneal Dialysis Musculoskeltal Medical History: Reports Hx Fibromyalgia Psychiatric Medical History: Reports: Hx Depression Past Surgical History: Reports: Hx Cardiac Catheterization - stentx1, Hx Coronary Stent - X1, Hx Hysterectomy - Immunizations Hx Diphtheria, Pertussis, Tetanus Vaccination: Yes Doctor's Discharge - Discharge Referrals: ARCHANA JOHNSON MD [Primary Care Provider] - Follow up as needed
[2020-06-17] MEDS ORDERED: NORMAL SALINE 1000 ML 1,000 ML IV ONE (15:10)
[2020-06-17] MEDS ORDERED: MORPHINE SULFATE 10 MG/ML INJ IV ONE (15:10)
[2020-06-17] MEDS ORDERED: ONDANSETRON HCL INJ/PF 4 MG/2 ML SDV IV ONE (15:11)
[2020-06-17 15:31] LABS: ABSOLUTE EOSINOPHILS # (AUTO) 0.2 10^3/uL (0.0-0.6); ABSOLUTE LYMPHOCYTES (AUTO) 2.3 10^3/uL (0.5-4.7); ABSOLUTE MONOCYTES (AUTO) 0.5 10^3/uL (0.1-1.4); ABSOLUTE NEUT (AUTO) 1.8 10^3/uL (1.7-8.2); BASOPHILS % (AUTO) 0.9 % (0-2); EOSINOPHILS % (AUTO) 4.5 % (0-6); HEMATOCRIT 38.3 % (36.0-47.0); HEMOGLOBIN 12.8 g/dL (12.0-15.5); LYMPHOCYTES % (AUTO) 46.5 % (13-45); MEAN CORPUSCULAR HEMOGLOBIN 31.1 pg (27.0-33.4); MEAN CORPUSCULAR HGB CONC 33.4 g/dL (32.0-36.0); MEAN CORPUSCULAR VOLUME 93 fl (80-97); MONOCYTES % (AUTO) 10.7 % (3-13); PLATELET COUNT 178 10^3/uL (150-450); RED BLOOD COUNT 4.11 10^6/uL (3.72-5.28); SEGMENTED NEUTROPHILS % (AUTO) 37.4 % (42-78); TOTAL CELLS COUNTED % (AUTO) 100 %; WHITE BLOOD COUNT 4.9 10^3/uL (4.0-10.5)
[2020-06-17 15:33] LABS: INTERNATIONAL RATION (INR) 1.01; PARTIAL THROMBOPLASTIN TIME 30.9 SEC (23.5-35.8); PROTHROMBIN TIME 13.5 SEC (11.4-15.4)
--- NOTE | 2020-06-17 15:47 | RADIOLOGY REPORT (SQ) ---
EXAM DESCRIPTION: CHEST 2 VIEWS IMAGES COMPLETED DATE/TIME: 06/17/2020 3:38 pm REASON FOR STUDY: Chest pain COMPARISON: 12/24/2019 EXAM PARAMETERS: NUMBER OF VIEWS: two views TECHNIQUE: Digital Frontal and Lateral radiographic views of the chest acquired. RADIATION DOSE: NA LIMITATIONS: none FINDINGS: LUNGS AND PLEURA: No opacities, masses or pneumothorax. No pleural effusion. MEDIASTINUM AND HILAR STRUCTURES: No masses or contour abnormalities. HEART AND VASCULAR STRUCTURES: Heart normal size. No evidence for failure. BONES: No acute findings. HARDWARE: Battery pack and leads are in place. OTHER: No other significant finding. IMPRESSION: NO ACUTE RADIOGRAPHIC FINDING IN THE CHEST. TECHNICAL DOCUMENTATION: JOB ID: [id number] 2010 [employer]- All Rights Reserved Reading location - IP/workstation name: [email or web address]
[2020-06-17 15:51] LABS: ALBUMIN 3.8 g/dL (3.5-5.0); ALKALINE PHOSPHATASE 97 U/L (38-126); ANION GAP 5 (5-19); ASPARTATE AMINO TRANSFERASE 54 U/L (14-36); BILIRUBIN,DIRECT 0.2 mg/dL (0.0-0.4); BILIRUBIN,TOTAL 0.3 mg/dL (0.2-1.3); BLOOD UREA NITROGEN 41 mg/dL (7-20); CALCIUM 8.9 mg/dL (8.4-10.2); CARBON DIOXIDE 33 mmol/L (22-30); CHLORIDE 98 mmol/L (98-107); GLUCOSE 98 mg/dL (75-110); POTASSIUM 4.3 mmol/L (3.6-5.0); TOTAL PROTEIN 6.3 g/dL (6.3-8.2)
--- NOTE | 2020-06-17 16:19 | ER Document Report ---
ED General - General Chief Complaint: Chest Pain Stated Complaint: CHEST PAIN Time Seen by Provider: 06/17/20 15:02 Primary Care Provider: ARCHANA JOHNSON MD [Primary Care Provider] - Follow up as needed Mode of Arrival: Medic TRAVEL OUTSIDE OF THE [place] IN LAST 30 DAYS: No - HPI Notes: 84-year-old female presents with chest pain. Patient states she has been having chest pain intermittently since yesterday. Is located in the center of her chest. Does not radiate. She states that her heart is having pain as the descriptor. She states around 10 AM today it seemed to be worsening. States that she called her motion pictures cartoonist and she was advised to come to the emergency department. Patient received aspirin and nitro with EMS, she reports that it did not change her pain at all. She denies shortness of breath, fever, nausea or abdominal pain. - Related Data Allergies/Adverse Reactions: aripiprazole [From Abilify] Allergy (Verified 12/24/19 10:36) atenolol Allergy (Verified 12/24/19 10:36) clarithromycin [From Biaxin] Allergy (Verified 12/24/19 10:36) doxepin Allergy (Verified 12/24/19 10:36) Iodinated Contrast Media [Iodinated Contrast- Oral and IV Dye] Allergy (Verified 12/24/19 10:36) isosorbide mononitrate [From Imdur] Allergy (Verified 12/24/19 10:36) lisinopril Allergy (Verified 12/24/19 10:36) meperidine HCl [From Demerol] Allergy (Verified 12/24/19 10:36) metoprolol Allergy (Verified 12/24/19 10:36) phenytoin sodium [From Dilantin] Allergy (Verified 12/24/19 10:36) prednisone Allergy (Verified 12/24/19 10:36) pregabalin [From Lyrica] Allergy (Verified 12/24/19 10:36) Past Medical History - General Information source: Patient - Social History Smoking Status: Never Smoker Family History: Reviewed & Not Pertinent - Past Medical History Cardiac Medical History: Reports: Hx Congestive Heart Failure, Hx Coronary Artery Disease, Hx Heart Attack, Hx Hypertension Neurological Medical History: Reports: Hx Seizures Endocrine Medical History: Reports: Hx Hypothyroidism Renal/ Medical History: Denies: Hx Peritoneal Dialysis Musculoskeletal Medical History: Reports Hx Fibromyalgia Psychiatric Medical History: Reports: Hx Depression Past Surgical History: Reports: Hx Cardiac Catheterization - stentx1, Hx Coronary Stent - X1, Hx Hysterectomy - Immunizations Hx Diphtheria, Pertussis, Tetanus Vaccination: Yes Hx Pneumococcal Vaccination: 04/18/14 Review of Systems - Review of Systems Constitutional: denies: Fever EENT: No symptoms reported Cardiovascular: Chest pain Respiratory: denies: Short of breath Gastrointestinal: denies: Abdominal pain, Nausea, Vomiting Genitourinary: No symptoms reported Female Genitourinary: No symptoms reported Musculoskeletal: No symptoms reported Skin: No symptoms reported Hematologic/Lymphatic: No symptoms reported Neurological/Psychological: No symptoms reported Physical Exam - Vital signs Vitals: Pulse Ox 89 L 06/17/20 14:50 - General General appearance: Appears well, Alert In distress: None - HEENT Head: Normocephalic, Atraumatic Extraocular movements intact: Yes Pupils: PERRL - Respiratory Breath sounds: Normal - Cardiovascular Rhythm: Regular Heart sounds: Normal auscultation Normal capillary refill: Yes - Abdominal Tenderness: Nontender - Extremities General lower extremity: No: Edema - Neurological Neuro grossly intact: Yes Cognition: Normal Orientation: AAOx4 - Psychological Associated symptoms: Normal affect - Skin Skin Temperature: Warm Course - Re-evaluation Re-evalutation: 84-year-old female here with chest pain present since yesterday, worsening today. She does have history of stents and a pacemaker. Her description of chest pain is somewhat atypical in nature, does not voice any exertional complaints. Tells me she did not have any relief with the nitro administered by EMS. EKG is similar to previous. A cardiac work-up will be performed, including a 2 troponin as there is some degree of vagueness. Will trial Toradol for pain. Potentially could be a vasospasm type event. Does not voice any other pulmonary or infectious type complaints. 06/17/20 19:00 Troponin is undetectable x2 06/17/20 19:01 Chest x-ray is without acute finding. No leukocytosis or left shift. No acute anemia. Electrolytes okay. Creatinine within normal limits. Slight transaminitis which has down trended since previous check. 06/17/20 19:04 Patient reports she is feeling better. I updated her on the reassuring work-up today. I discussed that she needs to have very close follow-up with cardiology, needs to call her doctor tomorrow. Patient would like to go home. Strict return precautions given, verbalized understanding, stable at time of discharge. - Vital Signs Vital signs: Temp Pulse Resp BP Pulse Ox 97.5 F 16 90/76 L 96 06/17/20 15:19 06/17/20 18:02 06/17/20 17:24 06/17/20 18:02 - Laboratory Result Diagrams: 06/17/20 15:03 06/17/20 15:03 Laboratory results interpreted by me: 06/17/20 06/17/20 15:03 15:03 Lymph % (Auto) 46.5 H Seg Neutrophils % 37.4 L Sodium 136.3 L Carbon Dioxide 33 H BUN 41 H Magnesium 2.5 H AST 54 H ALT 51 H - Diagnostic Test Radiology reviewed: Image reviewed, Reports reviewed - EKG Interpretation by Me Additional EKG results interpreted by me: EKG is interpreted by me. Atrial sensed rhythm, there do appear to be [place] P waves. First-degree block. There is some T wave flattening. Low voltage. No ST segment elevation. EKG appears grossly similar to previous dated 12/24/2019. Reviewed EMS rhythm strips and there does not appear to be any ST segment elevation as well. Discharge - Discharge Clinical Impression: Chest pain, unspecified Qualifiers: Chest pain type: unspecified Qualified Code(s): R07.9 - Chest pain, unspecified Disposition: HOME, SELF-CARE Additional Instructions: As discussed, your EKG appeared similar to previous and your troponin was negative twice. Please call your motion pictures cartoonist first thing in the morning to discuss a clinic visit. Return immediately to the emergency department for any concerning or worsening symptoms. Referrals: ARCHANA JOHNSON MD [Primary Care Provider] - Follow up as needed
[2020-06-17] MEDS ORDERED: KETOROLAC TROMETHAMINE INJ/PF 30 MG/1 ML SDV IV ONE (16:43)
[2020-06-17 19:28] VITALS: BP 90/54
--- NOTE | 2020-06-17 19:49 | EKG REPORT ---
SEVERITY:- ABNORMAL ECG - ATRIAL-PACED COMPLEXES BORDERLINE T ABNORMALITIES, ANTERIOR LEADS : Confirmed by: Octaviano Mills MD 17-Jun-2020 19:48:32
== END 2020-06-17 19:10 | disposition home or self-care (01) ==
LOC: ER 14:47
DX: R07.9 Chest pain, unspecified (principal); I11.0 Hypertensive heart disease with heart failure; I50.9 Heart failure, unspecified; I25.10 Atherosclerotic heart disease of native coronary artery without angina pectoris; Z95.0 Presence of cardiac pacemaker; I25.2 Old myocardial infarction
CPT/HCPCS: 93005; 99285; 96361; 96374; 36415; 83735; 85025; 85610; 85730; 80053; 84484; 71046; 93010; J1885; J2270; J2405; J7030

== ENCOUNTER → 2020-07-01 | Outpatient (CLI) | payer MEDICARE, MEDICAID ==
--- NOTE | 2020-07-01 19:30 | RADIOLOGY REPORT (SQ) ---
EXAM DESCRIPTION: KNEE RIGHT 2 VIEWS IMAGES COMPLETED DATE/TIME: 07/01/2020 4:21 pm REASON FOR STUDY: (W10.8XXA)FALL (ON) (FROM) OTHER STAIRS AND STEPS, INITIAL ENCOUNTER W10.8XXA FAL L (ON) (FROM) OTHER STAIRS AND STEPS, INITIAL EN COMPARISON: None. NUMBER OF VIEWS: Two views. TECHNIQUE: AP and lateral radiographic images acquired of the right knee. LIMITATIONS: None. FINDINGS: MINERALIZATION: Normal. BONES: No acute fracture or dislocation. No worrisome bone lesions. JOINT: Small joint effusion. SOFT TISSUES: No soft tissue swelling. No radio-opaque foreign body. OTHER: No other significant finding. IMPRESSION: Small joint effusion. No acute osseous finding. TECHNICAL DOCUMENTATION: JOB ID: [id number] [employer]- All Rights Reserved Reading location - IP/workstation name: [email or web address]
--- NOTE | 2020-07-01 19:31 | RADIOLOGY REPORT (SQ) ---
EXAM DESCRIPTION: ELBOW RIGHT AP/LAT IMAGES COMPLETED DATE/TIME: 07/01/2020 4:21 pm REASON FOR STUDY: (W10.8XXA)FALL (ON) (FROM) OTHER STAIRS AND STEPS, INITIAL ENCOUNTER W10.8XXA FAL L (ON) (FROM) OTHER STAIRS AND STEPS, INITIAL EN COMPARISON: None. NUMBER OF VIEWS: Four views. TECHNIQUE: AP, lateral, and both oblique radiographic images acquired of the right elbow. LIMITATIONS: None. FINDINGS: MINERALIZATION: Normal. BONES: No acute fracture or dislocation. No worrisome bone lesions. JOINT: No effusion. SOFT TISSUES: No soft tissue swelling. No foreign body. OTHER: No other significant finding. IMPRESSION: NEGATIVE STUDY OF THE RIGHT ELBOW. NO RADIOGRAPHIC EVIDENCE OF ACUTE INJURY. TECHNICAL DOCUMENTATION: JOB ID: [id number] 2010 [employer]- All Rights Reserved Reading location - IP/workstation name: [email or web address]
--- NOTE | 2020-07-01 19:31 | RADIOLOGY REPORT (SQ) ---
EXAM DESCRIPTION: FEMUR RIGHT IMAGES COMPLETED DATE/TIME: 07/01/2020 4:21 pm REASON FOR STUDY: (W10.8XXA)FALL (ON) (FROM) OTHER STAIRS AND STEPS, INITIAL ENCOUNTER W10.8XXA FAL L (ON) (FROM) OTHER STAIRS AND STEPS, INITIAL EN COMPARISON: None. NUMBER OF VIEWS: Two views. TECHNIQUE: Two radiographic images acquired of the right femur to include hip and knee in at least o ne projection. LIMITATIONS: None. FINDINGS: MINERALIZATION: Normal. BONES: No acute fracture. No worrisome bone lesions. SOFT TISSUES: No obvious swelling or foreign body. OTHER: No other significant finding. IMPRESSION: NEGATIVE STUDY OF THE RIGHT FEMUR. NO RADIOGRAPHIC EVIDENCE OF ACUTE INJURY. TECHNICAL DOCUMENTATION: JOB ID: [id number] 2010 [employer]- All Rights Reserved Reading location - IP/workstation name: [email or web address]
--- NOTE | 2020-07-01 19:32 | RADIOLOGY REPORT (SQ) ---
EXAM DESCRIPTION: HUMERUS RIGHT IMAGES COMPLETED DATE/TIME: 07/01/2020 4:21 pm REASON FOR STUDY: (W10.8XXA)FALL (ON) (FROM) OTHER STAIRS AND STEPS, INITIAL ENCOUNTER W10.8XXA FAL L (ON) (FROM) OTHER STAIRS AND STEPS, INITIAL EN COMPARISON: None. NUMBER OF VIEWS: Two views. TECHNIQUE: Two radiographic images were acquired of the right humerus to include elbow and shoulder in at least one projection. LIMITATIONS: None. FINDINGS: MINERALIZATION: Normal. BONES: No acute fracture or dislocation. No worrisome bone lesions. SOFT TISSUES: No obvious swelling or foreign body. OTHER: There is widening of the acromioclavicular joint. IMPRESSION: Cannot exclude an AC separation. No fracture. TECHNICAL DOCUMENTATION: JOB ID: [id number] 2010 [employer]- All Rights Reserved Reading location - IP/workstation name: [email or web address]
--- NOTE | 2020-07-01 19:33 | RADIOLOGY REPORT (SQ) ---
EXAM DESCRIPTION: HIP RIGHT AP/LATERAL IMAGES COMPLETED DATE/TIME: 07/01/2020 4:21 pm REASON FOR STUDY: (W10.8XXA)FALL (ON) (FROM) OTHER STAIRS AND STEPS, INITIAL ENCOUNTER W10.8XXA FAL L (ON) (FROM) OTHER STAIRS AND STEPS, INITIAL EN COMPARISON: 08/07/2019 NUMBER OF VIEWS: Two views. TECHNIQUE: AP pelvis and additional frog legview of the right hip. LIMITATIONS: None. FINDINGS: MINERALIZATION: Normal. RIGHT HIP: No fracture or dislocation. No worrisome bone lesions. LEFT HIP: Prior pinning of the left hip. PUBIS AND ISCHIUM: No fracture. PELVIS: No fracture. SACRUM: No fracture or dislocation. No worrisome bone lesions. LOWER LUMBAR SPINE: No fracture or dislocation. No worrisome bone lesions. No significant disc disea se. SOFT TISSUES: No findings. OTHER: No other significant finding. IMPRESSION: NEGATIVE STUDY OF THE RIGHT HIP. NO RADIOGRAPHIC EVIDENCE OF ACUTE INJURY. TECHNICAL DOCUMENTATION: JOB ID: [id number] 2010 [employer]- All Rights Reserved Reading location - IP/workstation name: [email or web address]
== END ==
LOC: RAD 15:48
PROVIDERS: ATTEND Internal Medicine
DX: T14.90XA Injury, unspecified, initial encounter (principal); W10.8XXA Fall (on) (from) other stairs and steps, initial encounter